=== PATIENT | female | born 1995 | race African-American/Black ===

== ENCOUNTER 2017-02-08 15:37 | Emergency (ER) | payer BC ==
[~2017-02-08] VITALS: Ht 166.4 cm; Wt 99.8 kg
[~2017-02-08 15:37] MED LIST: AMOX1TAB61 PO
[2017-02-08 15:47] VITALS: BP 124/72
--- NOTE | 2017-02-08 16:29 | PHYS DOC ---
Past Medical History Past Medical History: Asthma, Diabetes-Type II Additional Past Medical Histor: INSULIN RESISTANCE SYNDROME Past Surgical History: Cholecystectomy, Other Additional Past Surgical Histo: WISDOM TEETH EXTRACT Alcohol Use: None Drug Use: None Adult General Chief Complaint Chief Complaint: FACE PAIN [facility] HPI Patient is a 21 year old female presents emergency department stating that she' s had sinus congestion with nasal drainage and a cough that started about a month ago. She states that this time she just has a nasal pressure and congestion. She states she has sinus pressure over the frontal area. She states that she has been having chills but denies fevers that she has not taken her temperature. Patient states her last menstrual period was in December tenderness concern for . She does state she took a test 2 weeks ago at home and it was negative. Denies vaginal discharge. Denies any abdominal pain or discomfort. Review of Systems Review of Systems Constitutional: Denies fever. C/o chills Eyes: Denies change in visual acuity, redness, or eye pain [] HENT: nasal congestion, frontal sinus pressure denies sore throat [] Respiratory: Denies cough or shortness of breath [] Cardiovascular: No additional information not addressed in HPI [] GI: Denies abdominal pain, nausea, vomiting, bloody stools or diarrhea [] : Denies dysuria or hematuria [] Musculoskeletal: Denies back pain or joint pain [] Integument: Denies rash or skin lesions [] Neurologic: Denies headache, focal weakness or sensory changes [] Allergies Allergies Allergies Coded Allergies Type Severity Reaction Last Updated Verified No Known Drug Allergies 08/21/15 No Physical Exam Physical Exam Constitutional: Well developed, well nourished, no acute distress, non-toxic appearance. [] HENT: Normocephalic, atraumatic, bilateral external ears normal, oropharynx moist, no oral exudates, nose normal. Bilateral tympanic membranes appear to be normal. Patient with frontal sinus pressure. Patient with nasal congestion. Throat appears to have postnasal drip no erythematous no exudate noted. Eyes: PERRLA, EOMI, conjunctiva normal, no discharge. [] Neck: Normal range of motion, no tenderness, supple, no stridor. [] Cardiovascular:Heart rate regular rhythm, no murmur [] Lungs & Thorax: Bilateral breath sounds clear to auscultation [] Skin: Warm, dry, no erythema, no rash. [] Back: No tenderness Extremities: No tenderness, no cyanosis, no clubbing, ROM intact, no edema. [] Neurologic: Alert and oriented X 3, normal motor function, normal sensory function, no focal deficits noted. [] Psychologic: Affect normal, judgement normal, mood normal. [] Current Patient Data Vital Signs Vital Signs Date Time Temp Pulse Resp B/P Pulse Ox O2 Delivery O2 Flow Rate FiO2 02/08/17 15:47 97.4 86 16 100 Room Air 97.4 Lab Values Laboratory Tests Test 02/08/17 15:44 POC Urine HCG, Qualitative Hcg negative (Negative) EKG EKG [] Radiology/Procedures Radiology/Procedures [] Course & Med Decision Making Course & Med Decision Making Pertinent Labs and Imaging studies reviewed. (See chart for details) test is negative. Patient will be placed on Augmentin with recommendations for Sudafed and Mucinex as instructed by mix technician. Recommended plenty of fluids. Signs symptoms to return back to emergency department as been provided. Patient agrees with discharge instructions treatment regimens and follow-up recommendations. [] Dragon Disclaimer Dragon Disclaimer This electronic medical record was generated, in whole or in part, using a voice recognition dictation system. Departure Departure Impression: Primary Impression: Sinusitis Disposition: 01 HOME, SELF-CARE Condition: STABLE Referrals: NO PCP (PCP) Patient Instructions: Sinusitis, [id number] Additional Instructions: test was negative Activity as tolerated Sudafed as directed by manufacture Mucinex as directed by manufacture Medication as prescribed Drink plenty of fluids Followup with primary care provider in 3-5 days Return to emergency department as needed for signs and symptoms that become worse. Scripts Amoxicillin/Potassium Clav (Augmentin 875-125 Tablet)1 Each Tablet1 Tab PO BID # 20 TAB Prov:SJ SOLOMON APRN 02/08/17 SJ SOLOMON APRN Feb 08, 2017 16:29
[2017-02-08] MEDS ORDERED: AMOX1TAB61 PO (16:48)
== END 2017-02-08 18:52 | disposition home or self-care (01) ==
LOC: ER 15:37
DX: J32.9 Chronic sinusitis, unspecified (principal); J45.909 Unspecified asthma, uncomplicated; E11.9 Type 2 diabetes mellitus without complications
CPT/HCPCS: 81025; 99283

== ENCOUNTER 2017-04-09 11:17 | Emergency (ER) | payer BC ==
[~2017-04-09] VITALS: Ht 165.1 cm; Wt 117.9 kg
[2017-04-09 11:37] VITALS: BP 127/69
--- NOTE | 2017-04-09 11:56 | PHYS DOC ---
Past Medical History Past Medical History: Asthma, Diabetes-Type II Additional Past Medical Histor: INSULIN RESISTANCE SYNDROME Past Surgical History: Cholecystectomy, Other Additional Past Surgical Histo: WISDOM TEETH EXTRACT Alcohol Use: None Drug Use: None Adult General Chief Complaint Chief Complaint: EARACHE/EAR PAIN [facility] HPI Patient is a 21 year old female presents emergency department stating that she went out with her friends for the weekend and has been drinking. She states she came back, and went to bed. She states when she got up this morning she had muffled hearing out of the left ear. She states she did take a be penetrated clean her ear out. She denies obtaining any type of object. She denies any drainage or discharge coming from the site. She denies any fever, chills or any nausea vomiting. Review of Systems Review of Systems Constitutional: Denies fever or chills [] Eyes: Denies change in visual acuity, redness, or eye pain [] HENT: Denies nasal congestion or sore throat. C/o left ear discomfort Respiratory: Denies cough or shortness of breath [] Cardiovascular: No additional information not addressed in HPI [] GI: Denies abdominal pain, nausea, vomiting, bloody stools or diarrhea [] : Denies dysuria or hematuria [] Musculoskeletal: Denies back pain or joint pain [] Integument: Denies rash or skin lesions [] Neurologic: Denies headache, focal weakness or sensory changes [] Endocrine: Denies polyuria or polydipsia [] Allergies Allergies Allergies Coded Allergies Type Severity Reaction Last Updated Verified No Known Drug Allergies 08/21/15 No Physical Exam Physical Exam Constitutional: Well developed, well nourished, no acute distress, non-toxic appearance. [] HENT: Normocephalic, atraumatic, bilateral external ears normal, oropharynx moist, no oral exudates, nose normal. Right tympanic membranes appear to be normal. Left tympanic membrane appears to have an effusion although the area is not red. It does appear that she has a ruptured tympanic membrane as there is dark colored secretions noted at the lower part of the tympanic membrane. However this may also be a cerumen impaction. Eyes: PERRLA, EOMI, conjunctiva normal, no discharge. [] Neck: Normal range of motion, no tenderness, supple, no stridor. [] Cardiovascular:Heart rate regular rhythm, no murmur [] Lungs & Thorax: Bilateral breath sounds clear to auscultation [] Skin: Warm, dry, no erythema, no rash. [] Back: No tenderness, Extremities: No tenderness, no cyanosis, no clubbing, ROM intact, no edema. [] Neurologic: Alert and oriented X 3, normal motor function, normal sensory function, no focal deficits noted. [] Psychologic: Affect normal, judgement normal, mood normal. [] Current Patient Data Vital Signs Vital Signs Date Time Temp Pulse Resp B/P (MAP) Pulse Ox O2 Delivery O2 Flow Rate FiO2 04/09/17 11:37 98.2 91 18 98 Room Air 98.2 EKG EKG [] Radiology/Procedures Radiology/Procedures [] Course & Med Decision Making Course & Med Decision Making Pertinent Labs and Imaging studies reviewed. (See chart for details) She'll be discharged home in stable condition with recommendations for Tylenol or ibuprofen for pain and discomfort. She'll be discharged with signs and symptoms to return back to emergency department. Patient agrees with discharge instructions treatment regimens and follow-up recommendations. [] Dragon Disclaimer Dragon Disclaimer This electronic medical record was generated, in whole or in part, using a voice recognition dictation system. Departure Departure Impression: Primary Impression: Otalgia of left ear Disposition: 01 HOME, SELF-CARE Condition: STABLE Referrals: NO PCP (PCP) Patient Instructions: Otalgia-Brief, Tympanic Membrane Perforation-SportsMed Additional Instructions: Activity as tolerated. Medications as prescribed. Warm moist packs to the ear area. Keep the area clean and dry. Whenever you're taking a shower make sure you place a cotton ball in the ear to prevent water from going into the ear. Follow-up through primary care physician in next 3-5 days. Return back to emergency prior signs symptoms of become worse. SJ SOLOMON OPERATOR HELPER April 09, 2017 11:56
== END 2017-04-09 12:10 | disposition home or self-care (01) ==
LOC: ER 12:07
DX: H92.02 Otalgia, left ear (principal); J45.909 Unspecified asthma, uncomplicated; E11.9 Type 2 diabetes mellitus without complications
CPT/HCPCS: 99281

== ENCOUNTER 2017-07-30 17:18 | Emergency (ER) | payer BC ==
[~2017-07-30] VITALS: Ht 165.1 cm; Wt 117.9 kg
[2017-07-30 17:20] VITALS: BP 143/63
--- NOTE | 2017-07-30 17:34 | PHYS DOC ---
Past Medical History Past Medical History: Asthma, Diabetes-Type II Additional Past Medical Histor: INSULIN RESISTANCE SYNDROME Past Surgical History: Cholecystectomy, Other Additional Past Surgical Histo: WISDOM TEETH EXTRACT Alcohol Use: None Drug Use: None Adult General Chief Complaint Chief Complaint: VAGINAL PROBLEM HPI HPI Patient is a 21 year old female presents to the emergency department with a one -week history of vaginal bleeding. Patient states her last normal menstrual period was July 09, normal cycle normal timing. Patient states that one week ago she developed vaginal bleeding. She states she has no abdominal pain, no cramping. No vaginal discharge prior to the bleeding. She states she is not sexually active and has not been for 6 months. She has no complaints of headache , lightheadedness, chest pain, abdominal pain, nausea, vomiting. Patient reports that she saturates 3 pads in a 24-hour window. Review of Systems Review of Systems Constitutional: Denies fever or chills [] Eyes: Denies change in visual acuity, redness, or eye pain [] HENT: Denies nasal congestion or sore throat [] Respiratory: Denies cough or shortness of breath [] Cardiovascular: No additional information not addressed in HPI [] GI: Denies abdominal pain, nausea, vomiting, bloody stools or diarrhea [] : Denies dysuria or hematuria, vaginal bleeding[] Musculoskeletal: Denies back pain or joint pain [] Integument: Denies rash or skin lesions [] Neurologic: Denies headache, focal weakness or sensory changes [] Endocrine: Denies polyuria or polydipsia [] Allergies Allergies Allergies Coded Allergies Type Severity Reaction Last Updated Verified No Known Drug Allergies 08/21/15 No Physical Exam Physical Exam Constitutional: Well developed, well nourished, no acute distress, non-toxic appearance. [] HENT: Normocephalic, atraumatic, bilateral external ears normal, oropharynx moist, no oral exudates, nose normal. [] Eyes: PERRLA, EOMI, conjunctiva normal, no discharge. [] Neck: Normal range of motion, no tenderness, supple, no stridor. [] Cardiovascular:Heart rate regular rhythm, no murmur [] Lungs & Thorax: Bilateral breath sounds clear to auscultation [] Abdomen: Bowel sounds normal, soft, no tenderness, no masses, no pulsatile masses. : pt refused Skin: Warm, dry, no erythema, no rash. [] Back: No tenderness, no CVA tenderness. [] EKG EKG [] Radiology/Procedures Radiology/Procedures [] Course & Med Decision Making Course & Med Decision Making Pertinent Labs and Imaging studies reviewed. (See chart for details) Differential diagnosis: Dysfunctional uterine bleeding, spontaneous , bleeding in , menses Patient is now , her vital signs are stable without tachycardia or hypotension, she has no abdominal pain, she has no vaginal discharge. Patient states she is not at risk for an STD. At this time, patient we discharged home with plan to follow-up as scheduled at [facility]. Dragon Disclaimer Dragon Disclaimer This electronic medical record was generated, in whole or in part, using a voice recognition dictation system. Departure Departure Impression: Primary Impression: DUB (dysfunctional uterine bleeding) Disposition: 01 HOME, SELF-CARE Condition: STABLE Referrals: NO PCP (PCP) [facility] Patient Instructions: Uterine Bleeding, Dysfunctional Additional Instructions: Continue present care. Follow up with [facility] [place] [place] as scheduled. Please call them on Tuesday to see if they may see you sooner. Return to the emergency department for new symptoms or concerns or worsening of current condition. SUZANNE WRIGHT APRN Jul 30, 2017 17:34
== END 2017-07-30 17:50 | disposition home or self-care (01) ==
LOC: ER 17:18
DX: N93.8 Other specified abnormal uterine and vaginal bleeding (principal); J45.909 Unspecified asthma, uncomplicated; E11.9 Type 2 diabetes mellitus without complications; E88.81 Metabolic syndrome and other insulin resistance; Z90.49 Acquired absence of other specified parts of digestive tract
CPT/HCPCS: 81025; 99282

== ENCOUNTER 2018-06-17 11:22 | Emergency (ER) | payer BC ==
[2018-06-17 12:37] LABS: FECAL OB PT POSITIVE (NEG); NEG OBC FOB NEG; POS OBC FOB POS
[2018-06-17 13:05] LABS: ADD MAN DIFF? NO
[2018-06-17 13:07] LABS: BASO % 1 % (0-3); EOS % 0 % (0-3); HEMATOCRIT 36.1 % (36.0-47.0); LYMPH # 1.1 x10^3/uL (1.0-4.8); LYMPH % 19 % (24-48); MEAN CORPUSCULAR HEMOGLOBIN 26 pg (25-35); MEAN CORPUSCULAR HGB CONC 33 g/dL (31-37); MEAN CORPUSCULAR VOLUME 77 fL (79-100); MONO # 0.5 x10^3/uL (0.0-1.1); MONO % 9 % (0-9); NEUT # 4.4 x10^3uL (1.8-7.7); NEUT % 72 % (31-73); PLATELET COUNT 429 x10^3/uL (140-400); RED BLOOD COUNT 4.68 x10^6/uL (3.50-5.40); WHITE BLOOD COUNT 6.2 x10^3/uL (4.0-11.0)
[2018-06-17] MEDS: IBUPROFEN 600 MG TABLET. PO (13:11)
== END 2018-06-17 13:46 | disposition home or self-care (01) ==
LOC: ER 11:22
DX: K64.4 Residual hemorrhoidal skin tags (principal); J45.909 Unspecified asthma, uncomplicated; E11.9 Type 2 diabetes mellitus without complications; Z90.49 Acquired absence of other specified parts of digestive tract
CPT/HCPCS: 36415; 74018; 82274; 85025; 99285

== ENCOUNTER 2018-07-03 15:52 | Emergency (ER) | payer BC ==
[2018-07-03 16:35] LABS: URINE HCG POC HCG NEGATIVE (Negative)
== END 2018-07-03 17:21 | disposition home or self-care (01) ==
LOC: ER 17:21
DX: K64.9 Unspecified hemorrhoids (principal); J45.909 Unspecified asthma, uncomplicated; Z90.49 Acquired absence of other specified parts of digestive tract
CPT/HCPCS: 81025; 99282

== ENCOUNTER 2018-09-12 16:15 | Emergency (ER) | payer BC ==
[~2018-09-12] VITALS: Ht 165.1 cm; Wt 108.9 kg
[~2018-09-12 16:15] MED LIST changes: +HYDR30CR61 TP
[2018-09-12] MEDS ORDERED: LIDO:MAALOX 1:1 20 ML SINGLE DOSE. SWSW ONE (16:45)
[2018-09-12 17:01] LABS: BASO # 0.1 x10^3/uL (0.0-0.2); BASO % 1 % (0-3); EOS % 1 % (0-3); HEMATOCRIT 32.7 % (36.0-47.0); HEMOGLOBIN 10.8 g/dL (12.0-15.5); LYMPH # 1.7 x10^3/uL (1.0-4.8); LYMPH % 22 % (24-48); MEAN CORPUSCULAR HEMOGLOBIN 26 pg (25-35); MEAN CORPUSCULAR HGB CONC 33 g/dL (31-37); MEAN CORPUSCULAR VOLUME 77 fL (79-100); MONO # 0.6 x10^3/uL (0.0-1.1); MONO % 7 % (0-9); NEUT # 5.5 x10^3uL (1.8-7.7); NEUT % 70 % (31-73); PLATELET COUNT 436 x10^3/uL (140-400); RED BLOOD COUNT 4.22 x10^6/uL (3.50-5.40); RED CELL DISTRIBUTION WIDTH 15.9 % (11.5-14.5); WHITE BLOOD COUNT 7.9 x10^3/uL (4.0-11.0)
--- NOTE | 2018-09-12 17:02 | PHYS DOC ---
Past Medical History Past Medical History: Anxiety, Asthma Additional Past Medical Histor: INSULIN RESISTANCE SYNDROME Past Surgical History: Cholecystectomy Additional Past Surgical Histo: WISDOM TEETH EXTRACT Smoking: Cigarettes (The patient is a nonsmoker.) Alcohol Use: None Drug Use: None Adult General Chief Complaint Chief Complaint: CHEST PAIN HPI HPI Patient is a 22-year-old female presents to the emergency department for evaluation. She states that this morning, she began experiencing some discomfort in her chest, described as a sharp retrosternal pain. She also had some burning sensation in the back of her throat at the same time. She states that belching seemed to take the pain improved somewhat. She has not had any pleuritic chest pain or shortness of breath, dizziness or lightheadedness. She has no personal history of cardiac disease, or family history of premature onset coronary disease. She denies any recent immobilization or surgeries, and does not use oral contraceptives. She has not had any abdominal pain, she did have some nausea briefly, but has not had any vomiting. She has not had any fevers or chills. There are no alleviating or exacerbating factors to the patient's symptoms except as noted above. Review of Systems Review of Systems Constitutional: Denies fever or chills [] Eyes: Denies change in visual acuity, redness, or eye pain [] HENT: Denies nasal congestion or sore throat [] Respiratory: Denies cough or shortness of breath [] Cardiovascular: No additional information not addressed in HPI [] GI: Denies abdominal pain, vomiting, bloody stools or diarrhea [] : Denies dysuria or hematuria [] Musculoskeletal: Denies back pain or joint pain [] Integument: Denies rash or skin lesions [] Neurologic: Denies headache, focal weakness or sensory changes [] Endocrine: Denies polyuria or polydipsia [] All other systems were reviewed and found to be within normal limits, except as documented in this note. Current Medications Current Medications Current Medications Medications (Trade) Dose Ordered Sig/Ryan Start Time Stop Time Status Last Admin Dose Admin Multi-Ingredient Mouthwash/Gargle (Gi Cocktail) 20 ml 1X ONCE 09/12/18 16:45 09/12/18 16:48 DC 09/12/18 17:03 20 ML Allergies Allergies Allergies Coded Allergies Type Severity Reaction Last Updated Verified No Known Drug Allergies 08/21/15 No Physical Exam Physical Exam PHYSICAL EXAM: CONSTITUTIONAL: Well developed, well nourished HEAD: normocephalic, atraumatic EENT: PERRL, EOMI. Conjunctivae normal color, sclerae non-icteric; moist mucous membranes. NECK: Supple, non-tender; no meningismus. LUNGS: Lungs CTA, breathing even and unlabored. Normal air movement. HEART: Regular rate and rhythm, no murmur CHEST: No deformity; there is mild diffuse tenderness to palpation of the anterior chest with, but the patient states that this is not exactly reproduce her pain. ABDOMEN: The abdomen is soft, and non-tender, no masses or bruits. EXTREM: Normal ROM; no deformity, no calf tenderness. Normal pulses palpable in all extremities. There is no pedal edema. SKIN: No rash; no diaphoresis NEURO: Alert; normal speech and cognition; CN's grossly intact; strength grossly intact without focal deficit. BACK: No CVA TTP. Current Patient Data Vital Signs Vital Signs Date Time Temp Pulse Resp B/P (MAP) Pulse Ox O2 Delivery O2 Flow Rate FiO2 09/12/18 16:22 98.4 76 20 130/64 (86) 98 Room Air 98.4 Lab Values Laboratory Tests Test 09/12/18 16:52 09/12/18 16:57 09/12/18 18:00 White Blood Count 7.9 x10^3/uL (4.0-11.0) Red Blood Count 4.22 x10^6/uL (3.50-5.40) Hemoglobin 10.8 g/dL (12.0-15.5) L Hematocrit 32.7 % (36.0-47.0) L Mean Corpuscular Volume 77 fL (79-100) L Mean Corpuscular Hemoglobin 26 pg (25-35) Mean Corpuscular Hemoglobin Concent 33 g/dL (31-37) Red Cell Distribution Width 15.9 % (11.5-14.5) H Platelet Count 436 x10^3/uL (140-400) H Neutrophils (%) (Auto) 70 % (31-73) Lymphocytes (%) (Auto) 22 % (24-48) L Monocytes (%) (Auto) 7 % (0-9) Eosinophils (%) (Auto) 1 % (0-3) Basophils (%) (Auto) 1 % (0-3) Neutrophils # (Auto) 5.5 x10^3uL (1.8-7.7) Lymphocytes # (Auto) 1.7 x10^3/uL (1.0-4.8) Monocytes # (Auto) 0.6 x10^3/uL (0.0-1.1) Eosinophils # (Auto) 0.0 x10^3/uL (0.0-0.7) Basophils # (Auto) 0.1 x10^3/uL (0.0-0.2) D-Dimer (Lili) < 0.27 ug/mlFEU POC Urine HCG, Qualitative Hcg negative (Negative) Sodium Level 141 mmol/L (136-145) Potassium Level 4.2 mmol/L (3.5-5.1) Chloride Level 102 mmol/L (98-107) Carbon Dioxide Level 27 mmol/L (21-32) Anion Gap 12 (6-14) Blood Urea Nitrogen 8 mg/dL (7-20) Creatinine 0.6 mg/dL (0.6-1.0) Estimated GFR (Cockcroft-Gault) 151.3 BUN/Creatinine Ratio 13 (6-20) Glucose Level 102 mg/dL (70-99) H Calcium Level 9.8 mg/dL (8.5-10.1) Total Bilirubin 0.3 mg/dL (0.2-1.0) Aspartate Amino Transferase (AST) 20 U/L (15-37) Alanine Aminotransferase (ALT) 24 U/L (14-59) Alkaline Phosphatase 115 U/L (46-116) Creatine Kinase 455 U/L (26-192) H Creatine Kinase MB (Mass) 0.7 ng/mL (0.0-3.6) Creatine Kinase MB Relative Index 0.2 % (0-4) Troponin I Quantitative < 0.017 ng/mL (0.000-0.055) Total Protein 8.4 g/dL (6.4-8.2) H Albumin 4.2 g/dL (3.4-5.0) Albumin/Globulin Ratio 1.0 (1.0-1.7) Lipase 112 U/L (73-393) Laboratory Tests 09/12/18 16:52 Laboratory Tests 09/12/18 18:00 EKG EKG [Normal sinus rhythm with a normal rate, normal axis, normal intervals, there are no acute ischemic ST/T changes.] Radiology/Procedures Radiology/Procedures [PROCEDURE: CHEST PA & LATERAL PROCEDURE: CHEST PA LATERAL CLINICAL INDICATION: CHEST PAIN COMPARISON: None FINDINGS: No pneumothorax identified. Cardiac and mediastinal contours unremarkable. No pulmonary consolidation or acute airspace disease. No acute osseous abnormalities identified. IMPRESSION: No pulmonary consolidation or acute airspace disease. ] Course & Med Decision Making Course & Med Decision Making Pertinent Labs and Imaging studies reviewed. (See chart for details) [6:00 PM: The patient's condition remains stable. Her chemistry has hemolyzed and will be redrawn. Assuming the patient's laboratory tests are negative, the patient is stable to be discharged. I discussed test results with the patient, the need for home care plan return precautions. Her symptoms significantly improved after GI cocktail. We discussed using Pepcid AC twice daily, and liquid antacids for recurrent symptoms. 19:00: Labs reviewed. No acute findings on x-ray or lab panel. Patient is discharged home. She is advised to follow-up with her primary care doctor. Dragon Disclaimer Dragon Disclaimer This electronic medical record was generated, in whole or in part, using a voice recognition dictation system. Departure Departure Impression: Primary Impression: Atypical chest pain Additional Impression: GERD (gastroesophageal reflux disease) Disposition: 01 HOME, SELF-CARE Condition: STABLE Patient Instructions: Chest Pain (Nonspecific), Gastroesophageal Reflux Disease , Adult Additional Instructions: Take Pepcid AC 10 mg twice daily. Problem Qualifiers OUMOU BENNETT MD Sep 12, 2018 17:02 HORACE PERDOMO DO Sep 12, 2018 19:06
--- NOTE | 2018-09-12 17:35 | RAD ---
PROCEDURE: CHEST PA LATERAL CLINICAL INDICATION: CHEST PAIN COMPARISON: None FINDINGS: No pneumothorax identified. Cardiac and mediastinal contours unremarkable. No pulmonary consolidation or acute airspace disease. No acute osseous abnormalities identified. IMPRESSION: No pulmonary consolidation or acute airspace disease. Electronically signed by: Ander Ventura DO (09/12/2018 5:32 PM) [facility]
[2018-09-12 18:20] LABS: CALCIUM 9.8 mg/dL (8.5-10.1); CREATININE 0.6 mg/dL (0.6-1.0); GFR 151.3; POTASSIUM 4.2 mmol/L (3.5-5.1)
[2018-09-12 18:31] LABS: ALBUMIN 4.2 g/dL (3.4-5.0); TOTAL BILIRUBIN 0.3 mg/dL (0.2-1.0); TOTAL PROTEIN 8.4 g/dL (6.4-8.2)
[2018-09-12 19:12] VITALS: BP 120/63
--- NOTE | 2018-09-13 06:20 | EKG ---
[facility] [address] [place] [address] Test Date: 2018-09-12 Test Time: 16:24:04 Pat Name: CHRISTOPHER LOWE Department: Room: Gender: F Track Helper: : 1995 Requested By: OUMOU BENNETT Order Number: [id number] Reading MD: Abad Kimball Measurements Intervals [place] Rate: 66 P: 46 VT: 126 QRS: 78 QRSD: 86 T: 36 QT: 362 QTc: 381 Interpretive Statements SINUS RHYTHM NORMAL ECG Electronically Signed On 09-14-2018 11:24:04 CDT by Abad Kimball
== END 2018-09-12 19:12 | disposition home or self-care (01) ==
LOC: ER 16:15
DX: R07.89 Other chest pain (principal); K21.9 Gastro-esophageal reflux disease without esophagitis; F41.9 Anxiety disorder, unspecified; J45.909 Unspecified asthma, uncomplicated; Z90.49 Acquired absence of other specified parts of digestive tract
CPT/HCPCS: 36415; 71046; 80053; 81025; 82553; 83690; 84484; 85025; 85379; 93005; 99285-25

== ENCOUNTER 2018-10-10 14:53 | Emergency (ER) | payer BC ==
[~2018-10-10] VITALS: Ht 165.1 cm; Wt 108.9 kg
[2018-10-10 15:11] VITALS: BP 146/64
[2018-10-10] MEDS ORDERED: DIPHTH,PERTUSS(ACELL),TET TOX 0.5 ML DISP.SYRIN. VAX IM ONE (15:30)
[2018-10-10] MEDS ORDERED: SULF1TAB24 PO (15:38)
--- NOTE | 2018-10-10 15:39 | PHYS DOC ---
Past Medical History Past Medical History: No Pertinent History, Anxiety, Asthma Additional Past Medical Histor: INSULIN RESISTANCE SYNDROME Past Surgical History: No Surgical History, Cholecystectomy Additional Past Surgical Histo: WISDOM TEETH EXTRACT Alcohol Use: None Drug Use: None Adult General Chief Complaint Chief Complaint: OTHER COMPLAINTS HPI HPI Patient is a 23 year old female who presents with bilateral nipple infection after removing piercing 1 month ago. Patient states she noted swelling to the left nipple yesterday, denies any drainage, denies any fever. Review of Systems Review of Systems Constitutional: Denies fever or chills [] Musculoskeletal: Denies back pain or joint pain [] Integument: bilateral nipple infection Neurologic: Denies headache, focal weakness or sensory changes [] All other systems were reviewed and found to be within normal limits, except as documented in this note. Current Medications Current Medications Current Medications Medications (Trade) Dose Ordered Sig/Ryan Start Time Stop Time Status Last Admin Dose Admin Diphtheria/ Tetanus/Acell Pertussis (Boostrix) 0.5 ml ONCE ONCE 10/10/18 15:30 10/10/18 15:31 DC Allergies Allergies Allergies Coded Allergies Type Severity Reaction Last Updated Verified No Known Drug Allergies 08/21/15 No Physical Exam Physical Exam Constitutional: Well developed, well nourished, no acute distress, non-toxic appearance. [] Skin: Warm, dry, right nipple with no signs of infection. Right breast appears normal, pendulous, no drainage. No masses. Left nipple with an abscess 1500 position. Abscess is approximately 1 x 0.3 cm. It's fluctuant with surrounding erythema. There is no drainage. Back: No tenderness, no CVA tenderness. [] Extremities: No tenderness, no cyanosis, no clubbing, ROM intact, no edema. [] Neurologic: Alert and oriented X 3, normal motor function, normal sensory function, no focal deficits noted. [] Psychologic: Affect normal, judgement normal, mood normal. [] Current Patient Data Vital Signs Vital Signs Date Time Temp Pulse Resp B/P (MAP) Pulse Ox O2 Delivery O2 Flow Rate FiO2 10/10/18 15:11 98.4 66 16 146/64 (91) 98 Room Air 98.4 EKG EKG [] Radiology/Procedures Radiology/Procedures Indication: abscess left nipple Procedure: The patient was positioned appropriately. Local anesthesia was not applicable. An incision was then made over the apex of the lesion with a 18 gauge needle and small amount of yellow bloody material was expressed. The drainage cavity was irrigated and covered with sterile gauze. The patients tetanus status updated as needed. The patient tolerated the procedure well. Complications: none.[] Course & Med Decision Making Course & Med Decision Making Pertinent Labs and Imaging studies reviewed. (See chart for details) This is a 23-year-old female patient presented to the ED today with bilateral nipple infection after removing piercing month ago. Right nipple appears normal. Left nipple had an abscess which was drained as noted in procedures. Tetanus was updated. Patient was discharged on Bactrim. Warm compresses recommended to bilateral breasts. Instructed not re-foley the breasts until the infection has completely cleared up. Follow-up with PCP as needed. Dragon Disclaimer Dragon Disclaimer This electronic medical record was generated, in whole or in part, using a voice recognition dictation system. Departure Departure Impression: Primary Impression: Left breast abscess Disposition: HOME, SELF-CARE Condition: STABLE Referrals: NO PCP (PCP) follow up with your doctor next week. Patient Instructions: Abscess, Care After Additional Instructions: You were seen with breast infection. We put you on antibiotics, take them until completed. Apply warm compresses to bilateral breast twice a day. Follow-up with your own doctor in 1-2 weeks. Come back to the ED at any point symptoms worsen. Scripts Sulfamethoxazole/Trimethoprim (BACTRIM DS TABLET) 1 Each Tablet 1 TAB PO BID, #20 TAB Prov: ANISA MAHONEY APRN 10/10/18 ANISA MAHONEY APRN Oct 10, 2018 15:39
== END 2018-10-10 15:47 | disposition home or self-care (01) ==
LOC: ER 14:53
DX: N61.1 Abscess of the breast and nipple (principal); F41.9 Anxiety disorder, unspecified; J45.909 Unspecified asthma, uncomplicated; Z90.49 Acquired absence of other specified parts of digestive tract
CPT/HCPCS: 10060; 90471; 90715; 99283

== ENCOUNTER 2018-12-04 12:13 | Emergency (ER) | payer BC ==
[~2018-12-04] VITALS: Ht 165.1 cm; Wt 108.9 kg
[~2018-12-04 12:13] MED LIST changes: +SULF1TAB24 PO
[2018-12-04 12:15] VITALS: BP 128/68
[2018-12-04] MEDS ORDERED: AMOX500T PO (12:46)
--- NOTE | 2018-12-04 12:48 | PHYS DOC ---
Past Medical History Past Medical History: Anxiety, Asthma Additional Past Medical Histor: INSULIN RESISTANCE SYNDROME Past Surgical History: Cholecystectomy Additional Past Surgical Histo: WISDOM TEETH EXTRACT Alcohol Use: None Drug Use: None Adult General Chief Complaint Chief Complaint: EARACHE/EAR PAIN [facility] Patient is a 23 year old female who presents with ear pain. Patient complains of persistent popping and pain in the bilateral ears with the right being worse than the left. She has had symptoms over the last 2-3 days. Prior to that, she did have some viral upper respiratory symptoms including congestion and runny nose but the symptoms have improved. No fever or chills. She does endorse one prior history of urine infections in the past. She has no additional complaints today. Review of Systems Review of Systems Constitutional: Denies fever or chills Eyes: Denies change in visual acuity HENT: Denies nasal congestion Respiratory: Denies cough or shortness of breath Cardiovascular: No additional information not addressed in HPI GI: Denies abdominal pain Integument: Denies rash Neurologic: Denies headache All other systems were reviewed and found to be within normal limits, except as documented in this note. Allergies Allergies Allergies Coded Allergies Type Severity Reaction Last Updated Verified No Known Drug Allergies 08/21/15 No Physical Exam Physical Exam Constitutional: Well developed, well nourished, no acute distress, non-toxic appearance HENT: Normocephalic, atraumatic, bilateral external ears normal, oropharynx moist, no oral exudates, nose normal, bilateral TMs are clear but with effusions bilaterally Eyes: PERRLA, EOMI, conjunctiva normal Neck: Normal range of motion Cardiovascular:Heart rate regular rhythm, no murmur Lungs & Thorax: Bilateral breath sounds clear to auscultation Extremities: Normal ROM Neurologic: Alert and oriented X 3 Psychologic: Affect normal Current Patient Data Vital Signs Vital Signs Date Time Temp Pulse Resp B/P (MAP) Pulse Ox O2 Delivery O2 Flow Rate FiO2 12/04/18 12:15 98.6 75 16 128/68 (88) 100 Room Air 98.6 EKG EKG [] Radiology/Procedures Radiology/Procedures [] Course & Med Decision Making Course & Med Decision Making Pertinent Labs and Imaging studies reviewed. (See chart for details) Patient is evaluated in the fast track area of the ER for ear pain. On physical exam, she is found to have bilateral effusions and the TMs are dull. Patient does have Nasonex at home but states she had not been using it. Plan is for discharge home. She was encouraged to start using her Nasonex and also to use Benadryl and Sudafed as needed to help dry the secretions. She was given a prescription for amoxicillin and advised only to fill it and take it if her symptoms were not better after trying these other measures previously. Patient was agreeable to the plan of care. She was discharged to home. Dragon Disclaimer Dragon Disclaimer This electronic medical record was generated, in whole or in part, using a voice recognition dictation system. Departure Departure Impression: Primary Impression: Acute effusion of both middle ears Additional Impression: Otitis media of both ears Disposition: HOME, SELF-CARE Condition: GOOD Patient Instructions: Otitis Media with Effusion Scripts Amoxicillin (AMOXICILLIN) 500 Mg Tablet 500 MG PO TID, #21 TAB 0 Refills Prov: HORACE PERDMOO DO 12/04/18 Problem Qualifiers HORACE PERDOMO DO Dec 04, 2018 12:48
== END 2018-12-04 12:52 | disposition home or self-care (01) ==
LOC: ER 12:13
DX: H65.193 Other acute nonsuppurative otitis media, bilateral (principal); F41.9 Anxiety disorder, unspecified; J45.909 Unspecified asthma, uncomplicated; Z90.49 Acquired absence of other specified parts of digestive tract
CPT/HCPCS: 99283

== ENCOUNTER 2019-02-08 12:08 | Emergency (ER) | payer BC ==
[~2019-02-08] VITALS: Ht 167.6 cm; Wt 108.9 kg
[~2019-02-08 12:08] MED LIST changes: +AMOX500T PO
[2019-02-08 12:38] VITALS: BP 112/54
[2019-02-08] MEDS ORDERED: AMOX875T PO (12:50)
--- NOTE | 2019-02-08 12:50 | PHYS DOC ---
Past Medical History Past Medical History: Anxiety, Asthma Additional Past Medical Histor: INSULIN RESISTANCE SYNDROME Past Surgical History: Cholecystectomy Additional Past Surgical Histo: WISDOM TEETH EXTRACT Alcohol Use: None Drug Use: None Adult General Chief Complaint Chief Complaint: EARACHE/EAR PAIN [facility] HPI Patient is a 23 year old female who presents with an earache to the right ear. The patient states that she feels like she cannot hear. She has had congestion for approximately one week. She has tried taking [id number] cold medications with moderate relief. Review of Systems Review of Systems Constitutional: Denies fever or chills [] Eyes: Denies change in visual acuity, redness, or eye pain [] HENT: See history of present illness Respiratory: Denies cough or shortness of breath [] Cardiovascular: No additional information not addressed in HPI [] GI: Denies abdominal pain, nausea, vomiting, bloody stools or diarrhea [] : Denies dysuria or hematuria [] Musculoskeletal: Denies back pain or joint pain [] Integument: Denies rash or skin lesions [] Neurologic: Denies headache, focal weakness or sensory changes [] Endocrine: Denies polyuria or polydipsia [] All other systems were reviewed and found to be within normal limits, except as documented in this note. Allergies Allergies Allergies Coded Allergies Type Severity Reaction Last Updated Verified No Known Drug Allergies 08/21/15 No Physical Exam Physical Exam Constitutional: Well developed, well nourished, no acute distress, non-toxic appearance. [] HENT: Normocephalic, atraumatic, bilateral tympanic membranes are erythematous, oropharynx moist, no oral exudates, nose normal. [] Eyes: PERRLA, EOMI, conjunctiva normal, no discharge. [] Neck: Normal range of motion, no tenderness, supple, no stridor. [] Cardiovascular:Heart rate regular rhythm, no murmur [] Lungs & Thorax: Bilateral breath sounds clear to auscultation [] Neurologic: Alert and oriented X 3, normal motor function, normal sensory function, no focal deficits noted. [] Psychologic: Affect normal, judgement normal, mood normal. [] Current Patient Data Vital Signs Vital Signs Date Time Temp Pulse Resp B/P (MAP) Pulse Ox O2 Delivery O2 Flow Rate FiO2 02/08/19 12:38 98.3 73 16 112/54 (73) 100 Room Air 98.3 EKG EKG [] Radiology/Procedures Radiology/Procedures [] Course & Med Decision Making Course & Med Decision Making Pertinent Labs and Imaging studies reviewed. (See chart for details) [] Dragon Disclaimer Dragon Disclaimer This electronic medical record was generated, in whole or in part, using a voice recognition dictation system. Departure Departure Impression: Primary Impression: Otitis media of both ears Disposition: HOME, SELF-CARE Condition: STABLE Referrals: NO PCP (PCP) Patient Instructions: Otitis Media, Adult Additional Instructions: Take the antibiotic as directed. You may use ibuprofen or Tylenol for pain or fever. Follow-up with your primary care provider in 4 days if not improving or return to the emergency department if worsening. Scripts Amoxicillin (AMOXICILLIN) 875 Mg Tablet 1 TAB PO BID for otitis media, #20 TAB Prov: SHARON LEON APRN 02/08/19 SHARON LEON APRN Feb 08, 2019 12:50
== END 2019-02-08 13:15 | disposition home or self-care (01) ==
LOC: ER 12:08
DX: H66.93 Otitis media, unspecified, bilateral (principal); F41.9 Anxiety disorder, unspecified; J45.909 Unspecified asthma, uncomplicated; Z90.49 Acquired absence of other specified parts of digestive tract
CPT/HCPCS: 99283

== ENCOUNTER 2019-05-07 12:51 | Emergency (ER) | payer BC ==
[~2019-05-07] VITALS: Ht 167.6 cm; Wt 108.9 kg
[~2019-05-07 12:51] MED LIST changes: +AMOX875T PO
[2019-05-07 13:56] LABS: BILIRUBIN,URINE NEGATIVE (NEG); CLARITY,URINE CLEAR; COLOR,URINE YELLOW; NITRITE,URINE NEGATIVE (NEG); PH,URINE 5.5; PROTEIN,URINE NEGATIVE (NEG-TRACE); UROBILINOGEN,URINE 0.2 mg/dL (0.2 mg/dL)
[2019-05-07 14:07] LABS: RBC,URINE 0 /HPF (0-2); WBC,URINE RARE /HPF (0-4)
[2019-05-07 14:08] LABS: BACTERIA,URINE FEW /HPF (0-FEW); SQUAMOUS EPITHELIAL CELL,UR MOD /LPF
[2019-05-07] MEDS ORDERED: cefTRIAXone IM 250 MG VIAL IM ONE (14:15)
[2019-05-07] MEDS ORDERED: AZITHROMYCIN 250 MG TABLET. PO ONE (14:15)
--- NOTE | 2019-05-07 14:16 | PHYS DOC ---
Past Medical History Past Medical History: Anxiety, Asthma Additional Past Medical Histor: INSULIN RESISTANCE SYNDROME Past Surgical History: Cholecystectomy Additional Past Surgical Histo: WISDOM TEETH EXTRACT Alcohol Use: None Drug Use: None Adult General Chief Complaint Chief Complaint: PAIN ON URINATION [facility] HPI Patient is a 23 year old female who presents with was sexually active 2 weeks ago with a ex-boyfriend. Patient states last week she began having burning with urination and cloudy urine. Patient states she started taking cranberry pills and that seemed to help but she still having some burning with urination. Patient denies blood in her urine, back pain, abdominal pain, vaginal bleeding, vaginal discharge, foul odor and vaginal area or of her urine. Patient denies any fever. Review of Systems Review of Systems Constitutional: Denies fever or chills [] Eyes: Denies change in visual acuity, redness, or eye pain [] HENT: Denies nasal congestion or sore throat [] Respiratory: Denies cough or shortness of breath [] Cardiovascular: No additional information not addressed in HPI [] GI: Denies abdominal pain, nausea, vomiting, bloody stools or diarrhea [] : dysuria. Denies hematuria [] Musculoskeletal: Denies back pain or joint pain [] Integument: Denies rash or skin lesions [] Neurologic: Denies headache, focal weakness or sensory changes [] All other systems were reviewed and found to be within normal limits, except as documented in this note. Current Medications Current Medications Current Medications Medications (Trade) Dose Ordered Sig/Ryan Start Time Stop Time Status Last Admin Dose Admin Azithromycin (Zithromax) 1,000 mg 1X ONCE 05/07/19 14:15 05/07/19 14:17 DC 05/07/19 14:15 1,000 MG Ceftriaxone Sodium (Rocephin Im) 250 mg 1X ONCE 05/07/19 14:15 05/07/19 14:17 DC 05/07/19 14:15 250 MG Allergies Allergies Allergies Coded Allergies Type Severity Reaction Last Updated Verified No Known Drug Allergies 08/21/15 No Physical Exam Physical Exam Constitutional: Well developed, well nourished, no acute distress, non-toxic appearance. [] HENT: Normocephalic, atraumatic, bilateral external ears normal, oropharynx moist, no oral exudates, nose normal. [] Eyes: PERRLA, EOMI, conjunctiva normal, no discharge. [] Neck: Normal range of motion, no tenderness, supple, no stridor. [] Cardiovascular:Heart rate regular rhythm, no murmur [] Lungs & Thorax: Bilateral breath sounds clear to auscultation [] Abdomen: Bowel sounds normal, soft, no tenderness, no masses, no pulsatile masses. [] Skin: Warm, dry, no erythema, no rash. [] Back: No tenderness, no CVA tenderness. [] Extremities: No tenderness, no cyanosis, no clubbing, ROM intact, no edema. [] Neurologic: Alert and oriented X 3, normal motor function, normal sensory function, no focal deficits noted. [] Psychologic: Affect normal, judgement normal, mood normal. Normal Physical exam. See Documentation for Pelvic exam. [] Current Patient Data Vital Signs Vital Signs Date Time Temp Pulse Resp B/P (MAP) Pulse Ox O2 Delivery O2 Flow Rate FiO2 05/07/19 13:10 98.5 85 18 112/72 (85) 99 Room Air 98.5 Lab Values Laboratory Tests Test 05/07/19 13:15 05/07/19 13:17 Urine Collection Type Unknown Urine Color Yellow Urine Clarity Clear Urine pH 5.5 Urine Specific [place] 1.025 Urine Protein Negative mg/dL (NEG-TRACE) Urine Glucose (UA) Negative mg/dL (NEG) Urine Ketones (Stick) Negative mg/dL (NEG) Urine Blood Trace (NEG) Urine Nitrite Negative (NEG) Urine Bilirubin Negative (NEG) Urine Urobilinogen Dipstick 0.2 mg/dL (0.2 mg/dL) Urine Leukocyte Esterase Negative (NEG) Urine RBC 0 /HPF (0-2) Urine WBC Rare /HPF (0-4) Urine Squamous Epithelial Cells Mod /LPF Urine Bacteria Few /HPF (0-FEW) Urine Mucus Mod /LPF POC Urine HCG, Qualitative Hcg negative (Negative) Microbiology 05/07/19 Wet Prep - Final, Complete EKG EKG [] Radiology/Procedures Radiology/Procedures [] Course & Med Decision Making Course & Med Decision Making Patient is a 23 year old female who presents with was sexually active 2 weeks ago with a ex-boyfriend. Patient states last week she began having burning with urination and cloudy urine. Patient states she started taking cranberry pills and that seemed to help but she still having some burning with urination. Patient denies blood in her urine, back pain, abdominal pain, vaginal bleeding, vaginal discharge, foul odor and vaginal area or of her urine. Patient denies any fever. Patient is afebrile. Urine does not show infection and a pelvic exam will be done and patient will be treated for that she transmitted diseases. Patient will be given Rocephin and azithromycin. Patient currently has no pain. Patient has no CVA tenderness, no vaginal discharge, no fever. Abdomen Soft and non-tender and there are no masses felt. She is told she will be called if her chlamydia and gonorrhea cultures come back positive only. Patient treated today for sexually transmitted diseases. Pelvic Exam: Charge Entry Specialist present Abdomen: Nontender External Genitalia: Normal Skin Speculum: Normal vaginal mucosa, white cervical discharge Bimanual: No adnexal masses or tenderness, No CMT Dragon Disclaimer Dragon Disclaimer This electronic medical record was generated, in whole or in part, using a voice recognition dictation system. Departure Departure Impression: Primary Impression: Dysuria Additional Impression: Sexually transmissible disease Disposition: HOME, SELF-CARE Condition: STABLE Referrals: NO PCP (PCP) Patient Instructions: Sexually Transmitted Disease Additional Instructions: You will be called in 48 hours if you're cultures come back positive. You been treated today for sexually transmitted diseases. Follow-up with her primary care doctor if symptoms continue. Drink plenty of fluids. Problem Qualifiers [employer] May 07, 2019 14:16
[2019-05-07 15:40] VITALS: BP 126/77
[2019-05-08 15:17] LABS: GC PROBE Negative (Negative)
== END 2019-05-07 15:40 | disposition home or self-care (01) ==
LOC: ER 12:51
DX: A64 Unspecified sexually transmitted disease (principal); R30.0 Dysuria; F41.9 Anxiety disorder, unspecified; J45.909 Unspecified asthma, uncomplicated; Z90.49 Acquired absence of other specified parts of digestive tract
CPT/HCPCS: 81001; 81025; 87491; 87591; 96372; 99284; J0696; Q0111; Q0144

== ENCOUNTER 2019-05-13 19:18 | Emergency (ER) | payer BC ==
[~2019-05-13] VITALS: Ht 167.6 cm; Wt 108.9 kg
[2019-05-13 19:37] VITALS: BP 153/65
[2019-05-13 20:00] LABS: BILIRUBIN,URINE NEGATIVE (NEG); CLARITY,URINE CLEAR; COLOR,URINE YELLOW; NITRITE,URINE NEGATIVE (NEG); PROTEIN,URINE NEGATIVE (NEG-TRACE); UROBILINOGEN,URINE 0.2 mg/dL (0.2 mg/dL)
[2019-05-13 20:07] LABS: SQUAMOUS EPITHELIAL CELL,UR MOD /LPF
[2019-05-13 20:09] LABS: BACTERIA,URINE 0 /HPF (0-FEW); TRICHOMONAS,URINE PRESENT
[2019-05-13] MEDS ORDERED: FLUC150T PO (20:13)
[2019-05-13] MEDS ORDERED: METR500T PO (20:13)
--- NOTE | 2019-05-13 22:57 | PHYS DOC ---
Past Medical History Past Medical History: Anxiety, Asthma Additional Past Medical Histor: INSULIN RESISTANCE SYNDROME Past Surgical History: Cholecystectomy Additional Past Surgical Histo: WISDOM TEETH EXTRACT Alcohol Use: None Drug Use: None Adult General Chief Complaint Chief Complaint: PAIN ON URINATION HPI HPI Patient is a 23 year old female presenting with dysuria as well as vaginal itching and burning came here the other day had negative gonorrhea negative Chlamydia negative wet mount negative urinalysis however symptoms are persi sting. Allergies Allergies Allergies Coded Allergies Type Severity Reaction Last Updated Verified No Known Drug Allergies 08/21/15 No Physical Exam Physical Exam Constitutional: Well developed, well nourished, no acute distress, non-toxic appearance. [] HENT: Normocephalic, atraumatic, bilateral external ears normal, oropharynx moist, no oral exudates, nose normal. [] Eyes: PERRLA, EOMI, conjunctiva normal, no discharge. [] Abdomen: Bowel sounds normal, soft, no tenderness, no masses, no pulsatile masses. [] Skin: Warm, dry, no erythema, no rash. [] Extremities: No tenderness, no cyanosis, no clubbing, ROM intact, no edema. [] Neurologic: Alert and oriented X 3, normal motor function, normal sensory function, no focal deficits noted. [] Psychologic: Affect normal, judgement normal, mood normal. [] Current Patient Data Vital Signs Vital Signs Date Time Temp Pulse Resp B/P (MAP) Pulse Ox O2 Delivery O2 Flow Rate FiO2 05/13/19 19:37 97.9 73 16 153/65 (94) 100 Room Air 97.9 Lab Values Laboratory Tests Test 05/13/19 19:34 05/13/19 19:48 Urine Collection Type Unknown Urine Color Yellow Urine Clarity Clear Urine pH 6.0 Urine Specific [place] 1.020 Urine Protein Negative mg/dL (NEG-TRACE) Urine Glucose (UA) Negative mg/dL (NEG) Urine Ketones (Stick) Negative mg/dL (NEG) Urine Blood Trace (NEG) Urine Nitrite Negative (NEG) Urine Bilirubin Negative (NEG) Urine Urobilinogen Dipstick 0.2 mg/dL (0.2 mg/dL) Urine Leukocyte Esterase Small (NEG) Urine RBC 11-20 /HPF (0-2) Urine WBC 5-10 /HPF (0-4) Urine Squamous Epithelial Cells Mod /LPF Urine Bacteria 0 /HPF (0-FEW) Urine Mucus Slight /LPF Urine Trichomonas Present POC Urine HCG, Qualitative Hcg negative (Negative) EKG EKG [] Radiology/Procedures Radiology/Procedures [] Course & Med Decision Making Course & Med Decision Making Pertinent Labs and Imaging studies reviewed. (See chart for details) []Urinalysis noted contaminated sample likely not a UTI however there is Trichomonas patient was treated for that Flagyl twice a day for a week as well as a prescription for Diflucan Pelvic exam not repeated it was just done a few days ago. Counseled on safe sex and protection Dragon Disclaimer Dragon Disclaimer This electronic medical record was generated, in whole or in part, using a voice recognition dictation system. Departure Departure Impression: Primary Impression: Vaginitis Disposition: HOME, SELF-CARE Condition: STABLE Scripts Fluconazole (DIFLUCAN) 150 Mg Tablet 1 TAB PO ONCE, #1 TAB 1 Refill Prov: ANA ARRIAGA MD 05/13/19 Metronidazole (FLAGYL) 500 Mg Tablet 1 TAB PO BID, #14 TAB Prov: ANA ARRIAGA MD 05/13/19 ANA ARRIAGA MD May 13, 2019 22:57
== END 2019-05-13 20:15 | disposition home or self-care (01) ==
LOC: ER 19:18
DX: N76.0 Acute vaginitis (principal); R30.0 Dysuria; F41.9 Anxiety disorder, unspecified; J45.909 Unspecified asthma, uncomplicated; Z90.49 Acquired absence of other specified parts of digestive tract
CPT/HCPCS: 81001; 81025; 87086; 99284

== ENCOUNTER 2019-05-31 21:03 | Emergency (ER) | payer BC ==
[~2019-05-31] VITALS: Ht 165.1 cm; Wt 108.9 kg
[~2019-05-31 21:03] MED LIST changes: +FLUC150T PO; +METR500T PO
[2019-05-31 21:20] LABS: BILIRUBIN,URINE NEGATIVE (NEG); CLARITY,URINE CLEAR; COLOR,URINE YELLOW; NITRITE,URINE NEGATIVE (NEG); PROTEIN,URINE NEGATIVE (NEG-TRACE); UROBILINOGEN,URINE 0.2 mg/dL (0.2 mg/dL)
[2019-05-31 21:24] LABS: SQUAMOUS EPITHELIAL CELL,UR MOD /LPF; WBC,URINE OCC /HPF (0-4)
[2019-05-31 21:25] LABS: BACTERIA,URINE FEW /HPF (0-FEW)
[2019-05-31 21:28] VITALS: BP 156/75
--- NOTE | 2019-05-31 21:31 | PHYS DOC ---
Past Medical History Past Medical History: Anxiety, Asthma Additional Past Medical Histor: INSULIN RESISTANCE SYNDROME Past Surgical History: Cholecystectomy Additional Past Surgical Histo: WISDOM TEETH EXTRACT Alcohol Use: None Drug Use: None Adult General Chief Complaint Chief Complaint: VAGINAL PROBLEM HPI HPI Patient is a 23 year old Female who presents with a couple weeks ago and was diagnosed with Trichomonas and treated for gonorrhea and chlamydia. Patient states she has not had sexual intercourse since that time but in the last 3 days she is having pressure in the low mid abdomen and states she still having some white discharge. Review of Systems Review of Systems Constitutional: Denies fever or chills [] Eyes: Denies change in visual acuity, redness, or eye pain [] HENT: Denies nasal congestion or sore throat [] Respiratory: Denies cough or shortness of breath [] Cardiovascular: No additional information not addressed in HPI [] GI: low mid abdominal pressure, denies nausea, vomiting, bloody stools or diarrhea [] : Denies dysuria or hematuria [] Musculoskeletal: Denies back pain or joint pain [] Integument: Denies rash or skin lesions [] Neurologic: Denies headache, focal weakness or sensory changes [] Endocrine: Denies polyuria or polydipsia [] All other systems were reviewed and found to be within normal limits, except as documented in this note. Allergies Allergies Allergies Coded Allergies Type Severity Reaction Last Updated Verified No Known Drug Allergies 08/21/15 No Physical Exam Physical Exam Constitutional: Well developed, well nourished, no acute distress, non-toxic appearance. [] HENT: Normocephalic, atraumatic, bilateral external ears normal, oropharynx moist, no oral exudates, nose normal. [] Eyes: PERRLA, EOMI, conjunctiva normal, no discharge. [] Neck: Normal range of motion, no tenderness, supple, no stridor. [] Cardiovascular:Heart rate regular rhythm, no murmur [] Lungs & Thorax: Bilateral breath sounds clear to auscultation [] Abdomen: Bowel sounds normal, soft, Low mid abd pressure tenderness, no masses, no pulsatile masses. [] Skin: Warm, dry, no erythema, no rash. [] Back: No tenderness, no CVA tenderness. [] Extremities: No tenderness, no cyanosis, no clubbing, ROM intact, no edema. [] Neurologic: Alert and oriented X 3, normal motor function, normal sensory function, no focal deficits noted. [] Psychologic: Affect normal, judgement normal, mood normal. [] Current Patient Data Vital Signs Vital Signs Date Time Temp Pulse Resp B/P (MAP) Pulse Ox O2 Delivery O2 Flow Rate FiO2 05/31/19 21:28 98.4 90 18 156/75 (102) 99 Room Air 98.4 Lab Values Laboratory Tests Test 05/31/19 21:05 05/31/19 21:14 Urine Collection Type Unknown Urine Color Yellow Urine Clarity Clear Urine pH 6.0 Urine Specific Midnight 1.020 Urine Protein Negative mg/dL (NEG-TRACE) Urine Glucose (UA) Negative mg/dL (NEG) Urine Ketones (Stick) Negative mg/dL (NEG) Urine Blood Trace (NEG) Urine Nitrite Negative (NEG) Urine Bilirubin Negative (NEG) Urine Urobilinogen Dipstick 0.2 mg/dL (0.2 mg/dL) Urine Leukocyte Esterase Negative (NEG) Urine RBC 1-2 /HPF (0-2) Urine WBC Occ /HPF (0-4) Urine Squamous Epithelial Cells Mod /LPF Urine Bacteria Few /HPF (0-FEW) Urine Mucus Mod /LPF POC Urine HCG, Qualitative Hcg negative (Negative) Microbiology 05/31/19 Wet Prep - Final, Complete EKG EKG [] Radiology/Procedures Radiology/Procedures [] Impressions: [facility] [address] [place] [address] IMAGING REPORT Signed PATIENT: CHRISTOPHER LOWE ACCOUNT: [id number] : 1995 LOCATION: ER AGE: 23 SEX: F EXAM STATUS: REG ER ORD. PHYSICIAN: SJ SALDANA APRN REASON: low abd pain with flank pain PROCEDURE: CT ABDOMEN PELVIS WO CONTRAST CT abdomen and pelvis without contrast. HISTORY: Low abdominal pain, flank pain CT scan of the abdomen and pelvis was done without contrast. Lung bases are clear. There is no effusion. A liver lesion is not identified. Patient's had a cholecystectomy. Spleen and adrenal glands are normal. Pancreas is normal. There is no mass or hydronephrosis in the kidneys. A ureteral calculus is not identified. Appendix is normal. Uterus and ovaries are unremarkable. There is no bowel obstruction or ascites. IMPRESSION: 1. No renal or ureteral calculus noted. 2. No free fluid. 3. Normal appendix. 4. No bowel obstruction or other acute finding. PQRS Compliance Statement: One or more of the following individualized dose reduction techniques were utilized for this examination: 1. Automated exposure control 2. Adjustment of the mA and/or kV according to patient size 3. Use of iterative reconstruction technique Electronically signed by: Justice Kulkarni MD (05/31/2019 10:49 PM) [facility] DICTATED and SIGNED BY: JUSTICE KULKARNI MD DATE: 05/31/19 5386 Course & Med Decision Making Course & Med Decision Making Patient is a 23 year old Female who presents with a couple weeks ago and was diagnosed with Trichomonas and treated for gonorrhea and chlamydia. Patient states she has not had sexual intercourse since that time but in the last 3 days she is having pressure in the low mid abdomen and states she still having some white discharge. She denies vaginal itching, burning or dysuria symptoms. Patient rates her pressure discomfort an 8 out of 10. Abdomen soft and nontender but states that she feels increased pressure with palpation to the low mid abdomen. Patient does deny dysuria symptoms, nausea, vomiting, diarrhea, fevers. Patient states time she has left flank sharp to dull pains that come and go for the last 3 days. No CVA tenderness. Last menstrual period was last week. Patient states she does not want to be treated for Chlamydia or gonorrhea stitches just treated 2 weeks ago and has not had sexual intercourse. Patient is told that she will be called in 48 hours only if the gonorrhea and chlamydia come back positive. Vital signs are within normal limits. Gonorrhea and chlamydia cultures are sent off to lab along with a wet prep. Urinalysis is contaminated but will be sent off for culture. Wet prep is negative for findings. CT SCAN SHOWS 1. No renal or ureteral calculus noted. 2. No free fluid. 3. Normal appendix. 4. No bowel obstruction or other acute finding. She discharged home and follow up with primary care. Patient is to drink plenty of fluid. Pelvic Exam: Reserve Officer present Abdomen: Nontender External Genitalia: Normal Skin Speculum: Normal vaginal mucosa, White non odorous cervical discharge Bimanual: No adnexal masses or tenderness, No CMT Dragon Disclaimer Dragon Disclaimer This electronic medical record was generated, in whole or in part, using a voice recognition dictation system. Departure Departure Impression: Primary Impression: Dysuria Disposition: 01 HOME, SELF-CARE Condition: STABLE Referrals: NO PCP (PCP) Patient Instructions: Abdominal Pain (Nonspecific) Additional Instructions: Drink plenty of fluids. Return if symptoms worsen and we will recheck her urine. SJ SALDANA APRN May 31, 2019 21:31
--- NOTE | 2019-05-31 22:52 | RAD ---
CT abdomen and pelvis without contrast. HISTORY: Low abdominal pain, flank pain CT scan of the abdomen and pelvis was done without contrast. Lung bases are clear. There is no effusion. A liver lesion is not identified. Patient's had a cholecystectomy. Spleen and adrenal glands are normal. Pancreas is normal. There is no mass or hydronephrosis in the kidneys. A ureteral calculus is not identified. Appendix is normal. Uterus and ovaries are unremarkable. There is no bowel obstruction or ascites. IMPRESSION: 1. No renal or ureteral calculus noted. 2. No free fluid. 3. Normal appendix. 4. No bowel obstruction or other acute finding. PQRS Compliance Statement: One or more of the following individualized dose reduction techniques were utilized for this examination: 1. Automated exposure control 2. Adjustment of the mA and/or kV according to patient size 3. Use of iterative reconstruction technique Electronically signed by: Justice Jim MD (05/31/2019 10:49 PM) [facility]
[2019-06-04 18:09] LABS: GC PROBE Negative (Negative)
== END 2019-05-31 23:28 | disposition home or self-care (01) ==
LOC: ER 21:03
DX: R30.0 Dysuria (principal); R10.30 Lower abdominal pain, unspecified; F41.9 Anxiety disorder, unspecified; J45.909 Unspecified asthma, uncomplicated; Z90.49 Acquired absence of other specified parts of digestive tract
CPT/HCPCS: 36415; 74176; 81001; 81025; 87491; 87591; 99285; Q0111

== ENCOUNTER 2019-06-02 11:24 | Emergency (ER) | payer BC ==
[~2019-06-02] VITALS: Ht 165.1 cm; Wt 108.9 kg
[2019-06-02 11:41] VITALS: BP 148/71
[2019-06-02] MEDS ORDERED: AMOX500C PO (11:53)
--- NOTE | 2019-06-02 11:54 | PHYS DOC ---
Past Medical History Past Medical History: Anxiety, Asthma Additional Past Medical Histor: INSULIN RESISTANCE SYNDROME Past Surgical History: Cholecystectomy Additional Past Surgical Histo: WISDOM TEETH EXTRACT Alcohol Use: None Drug Use: None Adult General Chief Complaint Chief Complaint: EARACHE/EAR PAIN [facility] HPI Patient is a 23 year old female who presents with fever, chills, bilateral ear pain last 2 weeks. Patient rates her throbbing year pain a 6 out of 10. Review of Systems Review of Systems Constitutional: fever or chills [] Eyes: Denies change in visual acuity, redness, or eye pain [] HENT: Denies nasal congestion or sore throat. Bilateral ear pain [] Respiratory: Denies cough or shortness of breath [] Cardiovascular: No additional information not addressed in HPI [] GI: Denies abdominal pain, nausea, vomiting, bloody stools or diarrhea [] : Denies dysuria or hematuria [] Musculoskeletal: Denies back pain or joint pain [] Integument: Denies rash or skin lesions [] Neurologic: Denies headache, focal weakness or sensory changes [] Endocrine: Denies polyuria or polydipsia [] All other systems were reviewed and found to be within normal limits, except as documented in this note. Allergies Allergies Allergies Coded Allergies Type Severity Reaction Last Updated Verified No Known Drug Allergies 08/21/15 No Physical Exam Physical Exam Constitutional: Well developed, well nourished, no acute distress, non-toxic appearance. [] HENT: Normocephalic, atraumatic, bilateral external ears normal, oropharynx moist, no oral exudates, nose normal. Bilateral ear tympanic spread.[] Eyes: PERRLA, EOMI, conjunctiva normal, no discharge. [] Neck: Normal range of motion, no tenderness, supple, no stridor. [] Cardiovascular:Heart rate regular rhythm, no murmur [] Lungs & Thorax: Bilateral breath sounds clear to auscultation [] Abdomen: Bowel sounds normal, soft, no tenderness, no masses, no pulsatile masses. [] Skin: Warm, dry, no erythema, no rash. [] Back: No tenderness, no CVA tenderness. [] Extremities: No tenderness, no cyanosis, no clubbing, ROM intact, no edema. [] Neurologic: Alert and oriented X 3, normal motor function, normal sensory function, no focal deficits noted. [] Psychologic: Affect normal, judgement normal, mood normal. [] Current Patient Data Vital Signs Vital Signs Date Time Temp Pulse Resp B/P (MAP) Pulse Ox O2 Delivery O2 Flow Rate FiO2 06/02/19 11:41 98.8 94 16 148/71 (96) 100 Room Air 98.8 EKG EKG [] Radiology/Procedures Radiology/Procedures [] Course & Med Decision Making Course & Med Decision Making Patient is a 23 year old female who presents with fever, chills, bilateral ear pain last 2 weeks. Patient rates her throbbing year pain a 6 out of 10. Patient denies any nasal congestion, nausea, vomiting, diarrhea, abdominal pain, cough, shortness of air, chest pain. Skin pink warm and dry. Mucous members into moist. Patient's been taking Tylenol for fevers of which have only reached 99.3. Bilateral ear tympanic are red. Lungs are clear to patient all lobes. Heart rate regular without murmur. Throat is pink and without exudates or swelling. Dragon Disclaimer Dragon Disclaimer This electronic medical record was generated, in whole or in part, using a voice recognition dictation system. Departure Departure Impression: Primary Impression: Otitis media of both ears Disposition: 01 HOME, SELF-CARE Condition: STABLE Referrals: NO PCP (PCP) Patient Instructions: Otitis Media, Adult Additional Instructions: Continue taking ibuprofen or Tylenol for pain. Drink plenty of fluids. Take medication as prescribed. Scripts Amoxicillin (AMOXICILLIN) 500 Mg Capsule 1 CAP PO BID, #20 CAP Prov: SJ SALDANA MEAT BUTCHER 06/02/19 Problem Qualifiers Primary Impression: Otitis media of both ears Otitis media type: unspecified Qualified Codes: H66.93 - Otitis media, unspecified, bilateral SJ SALDANA MEAT BUTCHER Jun 02, 2019 11:54
== END 2019-06-02 12:04 | disposition home or self-care (01) ==
LOC: ER 11:24
DX: H66.93 Otitis media, unspecified, bilateral (principal); R50.9 Fever, unspecified; F41.9 Anxiety disorder, unspecified; J45.909 Unspecified asthma, uncomplicated; Z90.49 Acquired absence of other specified parts of digestive tract
CPT/HCPCS: 99283

== ENCOUNTER 2019-06-15 11:34 | Emergency (ER) | payer BC ==
[~2019-06-15] VITALS: Ht 167.6 cm; Wt 108.9 kg
[~2019-06-15 11:34] MED LIST changes: +AMOX500C PO
[2019-06-15 11:39] VITALS: BP 115/73
--- NOTE | 2019-06-15 12:39 | PHYS DOC ---
Past Medical History Past Medical History: No Pertinent History, Anxiety, Asthma Additional Past Medical Histor: INSULIN RESISTANCE SYNDROME Past Surgical History: Cholecystectomy Additional Past Surgical Histo: WISDOM TEETH EXTRACT Alcohol Use: None Drug Use: None Adult General Chief Complaint Chief Complaint: EARACHE/EAR PAIN [facility] HPI Patient is a 23 year old AA female who presents to the emergency department w [facility] complaints of pressure in both of her ears and feeling lightheaded today. Patient denies any difficulty speaking, incoordination, headache, numbness, tingling, or weakness. She denies any fever, cough, shortness of breath, nausea, vomiting, diarrhea. Patient states her mother has recently started burning lata in their home and she thinks that that might be triggering her allergies. Patient denies any shortness of breath or wheezing. She denies any pain at this time. Review of Systems Review of Systems Constitutional: Denies fever or chills [] Eyes: Denies change in visual acuity, redness, or eye pain [] HENT: Denies nasal congestion or sore throat; see history of present illness[] Respiratory: Denies cough or shortness of breath [] Cardiovascular: No additional information not addressed in HPI [] GI: Denies abdominal pain, nausea, vomiting, or diarrhea [] Musculoskeletal: Denies back pain or joint pain [] Integument: Denies rash or skin lesions [] Neurologic: Denies headache, focal weakness or sensory changes [] Complete systems were reviewed and found to be within normal limits, except as documented in this note. Allergies Allergies Allergies Coded Allergies Type Severity Reaction Last Updated Verified No Known Drug Allergies 08/21/15 No Physical Exam Physical Exam Constitutional: Well developed, well nourished, no acute distress, non-toxic appearance, obese [] HENT: Normocephalic, atraumatic, bilateral external ears normal, left TM normal, effusion of the right TM with no erythema or perforation, cobblestone appearance of posterior pharynx, oropharynx moist, no oral exudates, nasal turbinates noted to be edematous and erythematous Eyes: PERRLA, EOMI, conjunctiva normal, no discharge, no nystagmus. [] Neck: Normal range of motion, no tenderness, supple, no stridor. [] Cardiovascular:Heart rate regular rhythm, no murmur [] Lungs & Thorax: Bilateral breath sounds clear to auscultation [] Skin: Warm, dry, no erythema, no rash. [] Extremities: No cyanosis, ROM intact Neurologic: Alert and oriented X 3, normal motor function, normal sensory function, no focal deficits noted. [] Psychologic: Affect normal, judgement normal, mood normal. [] Current Patient Data Vital Signs Vital Signs Date Time Temp Pulse Resp B/P (MAP) Pulse Ox O2 Delivery O2 Flow Rate FiO2 06/15/19 11:39 97.9 70 17 115/73 (87) 99 Room Air 97.9 EKG EKG [] Radiology/Procedures Radiology/Procedures [] Course & Med Decision Making Course & Med Decision Making Pertinent Labs and Imaging studies reviewed. (See chart for details) [] Dragon Disclaimer Dragon Disclaimer This electronic medical record was generated, in whole or in part, using a voice recognition dictation system. Departure Departure Impression: Primary Impression: Acute effusion of right ear Additional Impression: Allergic rhinitis Disposition: HOME, SELF-CARE Condition: STABLE Referrals: NO PCP (PCP) Patient Instructions: Allergic Rhinitis Additional Instructions: Recommend that he take an antihistamine such as Claritin or Zyrtec once daily. Also use [id number] Flonase nasal spray, 2 sprays each nare once daily. Tylenol or ibuprofen as needed for pain or fever. Avoid triggers such as smoke, fragrance, dust, and pollen. WITH your primary care doctor if symptoms persist, return to the ER if symptoms worsen. Problem Qualifiers Additional Impression: Allergic rhinitis Allergic rhinitis trigger: unspecified Allergic rhinitis seasonality: unspecified Qualified Codes: J30.9 - Allergic rhinitis, unspecified AMINA SAMPSON DREDGE PUMP OPERATOR Jun 15, 2019 12:39
== END 2019-06-15 12:48 | disposition home or self-care (01) ==
LOC: ER 11:34
DX: H65.01 Acute serous otitis media, right ear (principal); J30.9 Allergic rhinitis, unspecified; R42 Dizziness and giddiness; F41.9 Anxiety disorder, unspecified; Z90.49 Acquired absence of other specified parts of digestive tract
CPT/HCPCS: 99281

== ENCOUNTER 2019-09-18 10:26 | Emergency (ER) | payer BC ==
[~2019-09-18] VITALS: Ht 165.1 cm; Wt 116.7 kg
[2019-09-18] MEDS ORDERED: cefTRIAXone IM 250 MG VIAL IM ONE (11:00)
[2019-09-18] MEDS ORDERED: ONDANSETRON ODT 4 MG TAB.RAPDIS. PO ONE (11:00)
[2019-09-18] MEDS ORDERED: AZITHROMYCIN 250 MG TABLET. PO ONE (11:00)
[2019-09-18 11:05] LABS: BILIRUBIN,URINE NEGATIVE (NEG); CLARITY,URINE CLEAR; COLOR,URINE YELLOW; NITRITE,URINE NEGATIVE (NEG); PROTEIN,URINE NEGATIVE (NEG-TRACE); UROBILINOGEN,URINE 0.2 mg/dL (0.2 mg/dL)
--- NOTE | 2019-09-18 11:06 | PHYS DOC ---
Past Medical History Past Medical History: Anxiety, Asthma Additional Past Medical Histor: "prediabetic" Past Surgical History: Cholecystectomy Additional Past Surgical Histo: WISDOM TEETH EXTRACT Alcohol Use: None Drug Use: None Adult General Chief Complaint Chief Complaint: SEXUALLY TRANSMITTED DISEASE HPI HPI Patient is a 23 year old female who presents with 1 week of burning with urination, vaginal itching and white discharge. Patient states that a woman who had intercourse with them and she has currently been having sexual intercourse with came up to her and stated that she tested positive for a sexually transmitted disease but did not tell her which one. Review of Systems Review of Systems : vaginal discharge and itching, dysuria or denies hematuria [] All other systems were reviewed and found to be within normal limits, except as documented in this note. Current Medications Current Medications Current Medications Medications (Trade) Dose Ordered Sig/Ryan Start Time Stop Time Status Last Admin Dose Admin Azithromycin (Zithromax) 1,000 mg 1X ONCE 09/18/19 11:00 09/18/19 11:05 DC 09/18/19 11:14 1,000 MG Ceftriaxone Sodium (Rocephin Im) 250 mg 1X ONCE 09/18/19 11:00 09/18/19 11:05 DC 09/18/19 11:17 250 MG Ondansetron HCl (Zofran Odt) 4 mg 1X ONCE 09/18/19 11:00 09/18/19 11:05 DC 09/18/19 11:16 4 MG Allergies Allergies Allergies Coded Allergies Type Severity Reaction Last Updated Verified No Known Drug Allergies 08/21/15 No Physical Exam Physical Exam Constitutional: Well developed, well nourished, no acute distress, non-toxic appearance. [] Skin: Warm, dry, no erythema, no rash. [] Back: No tenderness, no CVA tenderness. [] Extremities: No tenderness, no cyanosis, no clubbing, ROM intact, no edema. [] Neurologic: Alert and oriented X 3, normal motor function, normal sensory function, no focal deficits noted. [] Psychologic: Affect normal, judgement normal, mood normal. [] Current Patient Data Vital Signs Vital Signs Date Time Temp Pulse Resp B/P (MAP) Pulse Ox O2 Delivery O2 Flow Rate FiO2 09/18/19 10:39 98.8 79 16 133/75 (94) 100 Room Air 98.8 Lab Values Laboratory Tests Test 09/18/19 10:45 09/18/19 10:57 Urine Collection Type Unknown Urine Color Yellow Urine Clarity Clear Urine pH 6.0 Urine Specific [place] >=1.030 Urine Protein Negative mg/dL (NEG-TRACE) Urine Glucose (UA) Negative mg/dL (NEG) Urine Ketones (Stick) Negative mg/dL (NEG) Urine Blood Small (NEG) Urine Nitrite Negative (NEG) Urine Bilirubin Negative (NEG) Urine Urobilinogen Dipstick 0.2 mg/dL (0.2 mg/dL) Urine Leukocyte Esterase Negative (NEG) Urine RBC 6-10 /HPF (0-2) Urine WBC 0 /HPF (0-4) Urine Squamous Epithelial Cells Few /LPF Urine Bacteria Few /HPF (0-FEW) Urine Mucus Mod /LPF POC Urine HCG, Qualitative Hcg negative (Negative) Microbiology 09/18/19 Wet Prep - Final, Complete EKG EKG [] Radiology/Procedures Radiology/Procedures [] Course & Med Decision Making Course & Med Decision Making Abdomen soft and nontender. Skin pink warm and dry. Afebrile. Patient denies vomiting, nausea, abdominal pain, fever, chest pain, shortness of air, numbness or tingling, headache, vaginal bleeding that is abnormal. Patient is treated for chlamydia and Gonorrhea today and is told that she will get a phone call in 48 hours only if her chlamydia or gonorrhea comes back positive. Pelvic Exam: Human Resources Operations Specialist present Abdomen: Nontender External Genitalia: Normal Skin Speculum: Normal vaginal mucosa, white cervical discharge Bimanual: No adnexal masses or tenderness, No CMT Dragon Disclaimer Dragon Disclaimer This electronic medical record was generated, in whole or in part, using a voice recognition dictation system. Departure Departure Impression: Primary Impression: Sexually transmissible disease Disposition: HOME, SELF-CARE Condition: STABLE Referrals: NO PCP (PCP) Patient Instructions: Sexually Transmitted Disease Additional Instructions: Follow up with primary care provider. You have been treated for median gonorrhea today in the ED. You will be called only if you're chlamydia or gonorrhea comes back positive for 48 hours. SJ SALDANA APRN Sep 18, 2019 11:06
[2019-09-18 11:18] LABS: SQUAMOUS EPITHELIAL CELL,UR FEW /LPF
[2019-09-18 11:19] LABS: BACTERIA,URINE FEW /HPF (0-FEW); WBC,URINE 0 /HPF (0-4)
[2019-09-18 12:02] VITALS: BP 116/53
[2019-09-19 17:10] LABS: GC PROBE Negative (Negative)
== END 2019-09-18 12:02 | disposition home or self-care (01) ==
LOC: ER 10:26
DX: A64 Unspecified sexually transmitted disease (principal); F41.9 Anxiety disorder, unspecified; J45.909 Unspecified asthma, uncomplicated; Z90.49 Acquired absence of other specified parts of digestive tract
CPT/HCPCS: 81001; 81025; 87491; 87591; 96372; 99284; J0696; Q0111; Q0144; Q0162

== ENCOUNTER 2020-01-16 11:00 | Emergency (ER) | payer BC ==
[~2020-01-16] VITALS: Ht 167.6 cm; Wt 113.6 kg
[2020-01-16 11:19] VITALS: BP 147/63
[2020-01-16] MEDS ORDERED: AMOX875T PO (11:28)
--- NOTE | 2020-01-16 11:29 | PHYS DOC ---
Past Medical History Past Medical History: Anxiety, Asthma Additional Past Medical Histor: "prediabetic" Past Surgical History: Cholecystectomy Additional Past Surgical Histo: WISDOM TEETH EXTRACT Smoking Status: Never Smoker Alcohol Use: None Drug Use: None Adult General Chief Complaint Chief Complaint: EARACHE/EAR PAIN [facility] HPI Patient is a 24 year old female who presents with bilateral ear pain and popping since the beginning of the week. The patient denies fever. The patient does states she's been having a little bit of runny nose. Denies any other symptoms. Complete ROS were reviewed and found to be within normal limits, except as documented in the [facility] Allergies Allergies Allergies Coded Allergies Type Severity Reaction Last Updated Verified No Known Drug Allergies 08/21/15 No Physical Exam Physical Exam Constitutional: Well developed, well nourished, no acute distress, non-toxic appearance. [] HENT: Normocephalic, atraumatic, bilateral external ears normal, bilateral tympanic membranes are erythema with loss of landmarks, oropharynx moist, no oral exudates, nose normal. [] Neurologic: Alert and oriented X 3, normal motor function, normal sensory function, no focal deficits noted. [] Psychologic: Affect normal, judgement normal, mood normal. [] Current Patient Data Vital Signs Vital Signs Date Time Temp Pulse Resp B/P (MAP) Pulse Ox O2 Delivery O2 Flow Rate FiO2 01/16/20 11:19 98.6 83 16 147/63 (91) 100 Room Air 98.6 EKG EKG [] Radiology/Procedures Radiology/Procedures [] Course & Med Decision Making Course & Med Decision Making Pertinent Labs and Imaging studies reviewed. (See chart for details) Patient has bilateral otitis media. Will place the patient on amoxicillin. I will then also have the patient follow-up with her primary care doctor. Cat Disclaimer Cat Disclaimer This electronic medical record was generated, in whole or in part, using a voice recognition dictation system. Departure Departure Impression: Primary Impression: Otitis media of both ears Disposition: 01 HOME, SELF-CARE Condition: STABLE Referrals: NO PCP (PCP) Patient Instructions: Otitis Media, Adult Additional Instructions: Thank you for visiting [facility]. We appreciate you trusting us with your care. If any additional problems come up don't hesitate to return to visit us. Please follow up with your primary care provider so they can plan additional care if needed and know about the problem that you had. If symptoms worsen come back to the Emergency Department. Any concerning symptoms that start such as chest pain, shortness of air, weakness or numbness on one side of the body, running high fevers or any other concerning symptoms return to the ER. You have been prescribed an antibiotic today to help fight your infection. Please take all of the antibiotic as directed. If after 48 hours the infection is not improving, please return for more care. If the infection worsens, return to ER for additional care. Please also get some Zyrtec [id number] and take as label instructions dire ct. Scripts Amoxicillin (AMOXICILLIN) 875 Mg Tablet 1 TAB PO BID for 7 Days, #14 TAB Prov: FEDERICO ROBERTSON APRN 01/16/20 Problem Qualifiers Primary Impression: Otitis media of both ears Otitis media type: unspecified Qualified Codes: H66.93 - Otitis media, unspecified, bilateral FEDERICO ROBERTSON APRN Jan 16, 2020 11:29
== END 2020-01-16 11:44 | disposition home or self-care (01) ==
LOC: ER 11:00
DX: H66.93 Otitis media, unspecified, bilateral (principal); R09.89 Other specified symptoms and signs involving the circulatory and respiratory systems; F41.9 Anxiety disorder, unspecified; J45.909 Unspecified asthma, uncomplicated; Z90.49 Acquired absence of other specified parts of digestive tract; Z98.890 Other specified postprocedural states
CPT/HCPCS: 99283

== ENCOUNTER 2020-01-18 15:31 | Emergency (ER) | payer BC ==
[~2020-01-18] VITALS: Ht 167.6 cm; Wt 113.0 kg
[2020-01-18 15:50] VITALS: BP 124/60
[2020-01-18 16:16] LABS: BILIRUBIN,URINE NEGATIVE (NEG); CLARITY,URINE CLEAR; COLOR,URINE YELLOW; NITRITE,URINE NEGATIVE (NEG); PH,URINE 5.5; PROTEIN,URINE NEGATIVE (NEG-TRACE); UROBILINOGEN,URINE 0.2 mg/dL (0.2 mg/dL)
--- NOTE | 2020-01-18 16:19 | PHYS DOC ---
Past Medical History Past Medical History: Anxiety, Asthma Additional Past Medical Histor: "prediabetic" Past Surgical History: Cholecystectomy Additional Past Surgical Histo: WISDOM TEETH EXTRACT Smoking Status: Never Smoker Alcohol Use: None Drug Use: None Adult General Chief Complaint Chief Complaint: PAIN ON URINATION HPI HPI Patient is a 24 year old female with a history of anxiety, asthma, who presents to the ED today complaining of vaginal itching and discharged that began 2 days ago. Patient reports being started on antibiotics for an ear infection 3 days ago. She believes she has a yeast infection. Denies any concerns for STDs. She is currently on amoxicillin. Review of Systems Review of Systems Constitutional: Denies fever or chills [] GI: Reports vaginal discharge. Denies abdominal pain, nausea, vomiting, bloody stools or diarrhea [] : Denies dysuria or hematuria [] Musculoskeletal: Denies back pain or joint pain [] Integument: Denies rash or skin lesions [] Neurologic: Denies headache, focal weakness or sensory changes [] All other systems were reviewed and found to be within normal limits, except as documented in this note. Allergies Allergies Allergies Coded Allergies Type Severity Reaction Last Updated Verified No Known Drug Allergies 08/21/15 No Physical Exam Physical Exam Constitutional: Well developed, well nourished, no acute distress, non-toxic appearance. [] Abdomen: Bowel sounds normal, soft, no tenderness, no masses, no pulsatile masses. [] Pelvic exam= external pelvic appears normal, cervix is not visualized due to body habitus, no CMT, no adnexal tenderness, trace amount of brownish discharge in the vaginal vault Skin: Warm, dry, no erythema, no rash. [] Back: No tenderness, no CVA tenderness. [] Extremities: No tenderness, no cyanosis, no clubbing, ROM intact, no edema. [] Neurologic: Alert and oriented X 3, normal motor function, normal sensory function, no focal deficits noted. [] Psychologic: Affect normal, judgement normal, mood normal. [] Current Patient Data Vital Signs Vital Signs Date Time Temp Pulse Resp B/P (MAP) Pulse Ox O2 Delivery O2 Flow Rate FiO2 01/18/20 15:50 98.3 94 20 124/60 (81) 99 Room Air 98.3 Lab Values Laboratory Tests Test 01/18/20 15:45 Urine Collection Type Unknown Urine Color Yellow Urine Clarity Clear Urine pH 5.5 Urine Specific [place] >=1.030 Urine Protein Negative mg/dL (NEG-TRACE) Urine Glucose (UA) Negative mg/dL (NEG) Urine Ketones (Stick) Negative mg/dL (NEG) Urine Blood Small (NEG) Urine Nitrite Negative (NEG) Urine Bilirubin Negative (NEG) Urine Urobilinogen Dipstick 0.2 mg/dL (0.2 mg/dL) Urine Leukocyte Esterase Negative (NEG) Urine RBC Occ /HPF (0-2) Urine WBC 0 /HPF (0-4) Urine Squamous Epithelial Cells Few /LPF Urine Bacteria 0 /HPF (0-FEW) Urine Mucus Mod /LPF Microbiology 01/18/20 Wet Prep - Final, Complete EKG EKG [] Radiology/Procedures Radiology/Procedures [] Course & Med Decision Making Course & Med Decision Making Pertinent Labs and Imaging studies reviewed. (See chart for details) This is a 24-year-old female patient presented to the ED today with vaginal discharge that began 2 days ago. Patient is currently on antibiotics and believes she has a yeast infection. Urine analysis is negative, white prep is negative. Discharged to home. Recommended probiotics/yogurt while on antibiotics. Given prescription fluconazole. F/u with PCP or OB in 1 week Cat Disclaimer Cat Disclaimer This electronic medical record was generated, in whole or in part, using a voice recognition dictation system. Departure Departure Impression: Primary Impression: Vaginal discharge Disposition: HOME, SELF-CARE Condition: STABLE Referrals: UNKNOWN PCP NAME (PCP) follow up with your OBGYN or primary care doctor in 1-2 weeks Patient Instructions: Vaginitis, Monilial Additional Instructions: You were seen for vaginal discharge, take the prescribed fluconazole as ordered please consider taking probiotics or yogurt 3 times a day while on antibiotics this will help prevent yeast infection and reduce some of your symptoms. Scripts Fluconazole (DIFLUCAN) 150 Mg Tablet 1 TAB PO ONCE, #1 TAB 1 Refill Take on tablet today and repeat in 1 week Prov: ANISA MAHONEY APRN 01/18/20 ANISA MAHONEY APRN Jan 18, 2020 16:19
[2020-01-18 16:23] LABS: BACTERIA,URINE 0 /HPF (0-FEW); RBC,URINE OCC /HPF (0-2); SQUAMOUS EPITHELIAL CELL,UR FEW /LPF; WBC,URINE 0 /HPF (0-4)
[2020-01-18] MEDS ORDERED: FLUC150T PO (16:37)
== END 2020-01-18 17:08 | disposition home or self-care (01) ==
LOC: ER 15:31
DX: N89.8 Other specified noninflammatory disorders of vagina (principal); L29.2 Pruritus vulvae; F41.9 Anxiety disorder, unspecified; J45.909 Unspecified asthma, uncomplicated; Z90.49 Acquired absence of other specified parts of digestive tract; Z98.890 Other specified postprocedural states
CPT/HCPCS: 81001; 87491; 87591; 99283; Q0111

== ENCOUNTER 2020-03-03 13:36 | Emergency (ER) | payer BC ==
[~2020-03-03] VITALS: Ht 167.6 cm; Wt 109.0 kg
--- NOTE | 2020-03-03 14:23 | RAD ---
Examination: CHEST AP ONLY History: Sore throat Comparison: 09/12/2018 two-view chest x-ray exam Findings: AP portable upright frontal view of the chest was obtained. The cardiomediastinal silhouette is normal. Lungs are clear. There is no pneumothorax. No pleural effusion is appreciated. No acute bone abnormality. IMPRESSION: No acute cardiopulmonary process. Electronically signed by: Marcelino Randall MD (03/03/2020 2:20 PM) [id number]
[2020-03-03 14:26] VITALS: BP 137/60
[2020-03-03 14:42] LABS: INFLUENZA A PATIENT NEGATIVE (NEGATIVE); INFLUENZA B PATIENT NEGATIVE (NEGATIVE)
[2020-03-03] MEDS ORDERED: AZIT250T PO (15:06)
--- NOTE | 2020-03-03 15:06 | PHYS DOC ---
Past Medical History Past Medical History: Anxiety, Asthma Additional Past Medical Histor: "prediabetic" Past Surgical History: Cholecystectomy Additional Past Surgical Histo: WISDOM TEETH EXTRACT Smoking Status: Never Smoker Alcohol Use: None Drug Use: None General Adult EDM: Chief Complaint: SORE THROAT HPI: HPI: Patient is a 24 year old female with history of anxiety and asthma who presents with complaint of sore throat. Patient complaining of constant sore throat for the last 2 weeks without fever, shortness of breath, cough and congestion, sick contact, myalgia, neck pain, history of frequent sore throat. Patient rated her pain as a moderate pain and is concerned for taking care of her mother who is currently admitted at [facility] with negative COVID-19 test. Review of Systems: Review of Systems: Constitutional: Denies fever or chills. [] Eyes: Denies change in visual acuity. [] HENT: Denies nasal congestion, report sore throat. [] Respiratory: Denies cough or shortness of breath. [] Cardiovascular: Denies chest pain or edema. [] GI: Denies abdominal pain, nausea, vomiting, bloody stools or diarrhea. [] : Denies dysuria. [] Musculoskeletal: Denies back pain or joint pain. [] Integument: Denies rash. [] Neurologic: Denies headache, focal weakness or sensory changes. [] Endocrine: Denies polyuria or polydipsia. [] Lymphatic: Denies swollen glands. [] Psychiatric: Denies depression or anxiety. [] Heart Score: Risk Factors: Risk Factors: DM, Current or recent (<one month) smoker, HTN, HLP, family history of CAD, obesity. Risk Scores: Score 0 - 3: 2.5% MACE over next 6 weeks - Discharge Home Score 4 - 6: 20.3% MACE over next 6 weeks - Admit for Clinical Observation Score 7 - 10: 72.7% MACE over next 6 weeks - Early Invasive Strategies Allergies: Allergies: Allergies Coded Allergies Type Severity Reaction Last Updated Verified No Known Drug Allergies 08/21/15 No Physical Exam: PE: Constitutional: Well developed, well nourished, no acute distress, non-toxic appearance. [] HENT: Normocephalic, atraumatic, bilateral external ears normal, oropharynx moist, no oral exudates, nose normal. [] Eyes: PERRLA, EOMI, conjunctiva normal, no discharge. [] Neck: Normal range of motion, no tenderness, supple, no stridor. [] Cardiovascular:Heart rate regular rhythm, no murmur [] Lungs & Thorax: Bilateral breath sounds clear to auscultation [] Neurologic: Alert and oriented X 3, normal motor function, normal sensory function, no focal deficits noted. [] Psychologic: Affect normal, judgement normal, mood normal. [] Current Patient Data: Labs: Laboratory Tests Test 03/03/20 14:15 Influenza Type A Antigen Negative (NEGATIVE) Influenza Type B Antigen Negative (NEGATIVE) Group A Streptococcus Rapid Negative (NEGATIVE) Vital Signs: Vital Signs Date Time Temp Pulse Resp B/P (MAP) Pulse Ox O2 Delivery O2 Flow Rate FiO2 03/03/20 14:26 98.6 72 16 137/60 (85) 99 Room Air 98.6 EKG: EKG: [] Radiology/Procedures: Radiology/Procedures: [facility] [address] [place] [address] IMAGING REPORT Signed PATIENT: CHRISTOPHER LOWE AACCOUNT: [id number] : 1995 LOCATION: ER AGE: 24 SEX: F EXAM STATUS: REG ER ORD. PHYSICIAN: HOWARD LEWIS MD REASON: sore throat PROCEDURE: CHEST AP ONLY Examination: CHEST AP ONLY History: Sore throat Comparison: 09/12/2018 two-view chest x-ray exam Findings: AP portable upright frontal view of the chest was obtained. The cardiomediastinal silhouette is normal. Lungs are clear. There is no pneumothorax. No pleural effusion is appreciated. No acute bone abnormality. IMPRESSION: No acute cardiopulmonary process. Electronically signed by: Marcelino Lainez MD (03/03/2020 2:20 PM) [id number] DICTATED and SIGNED BY: MARCELINO LAINEZ MD DATE: 03/03/20 1420 Course & Med Decision Making: Course & Med Decision Making Pertinent Labs and Imaging studies reviewed. (See chart for details) Evaluation of patient in ER showed 24-year-old female patient with complaining of sore throat for 2 weeks. Patient had negative chest x-ray, rapid strep and flu test. Plan discharge patient home with diagnosis of acute pharyngitis. She did not have sign of COVID 19. [place] Disclaimer: Cat Disclaimer: This electronic medical record was generated, in whole or in part, using a voice recognition dictation system. Departure Departure Impression: Primary Impression: Acute pharyngitis Qualified Codes: J02.9 - Acute pharyngitis, unspecified Disposition: HOME, SELF-CARE (At 1504) Condition: STABLE Referrals: UNKNOWN PCP NAME (PCP) Patient Instructions: Viral and Bacterial Pharyngitis Additional Instructions: Drink plenty of liquids Follow-up with your primary care physician in 3-5 days Return to ER if not getting better Thank you for visiting [facility]. We appreciate you trusting us with your care. If any additional problems come up don't hesitate to return to visit us. Please follow up with your primary care provider so they can plan additional care if needed and know about the problem that you had. If symptoms worsen come back to the Emergency Department. Any concerning symptoms that start such as chest pain, shortness of air, weakness or numbness on one side of the body, running high fevers or any other concerning symptoms return to the ER. Scripts Azithromycin (ZITHROMAX) 250 Mg Tablet 250 MG PO as directed for ANTI-BIOTIC, #6 TAB 0 Refills Take 2 PO x 1 days Then take 1 PO q 24 hour for the next 4 days Prov: HOWARD LEWIS MD 03/03/20 COVID-19 Assessment: COVID-19 Patient Risks: Age 65 or older: No Sign of co-morbidity: No Exp to person + for COVID: No Exp to PUI: No Travel from affected area: No Lower respiratory symptoms: No Fever: No Other: No PPE Use: Full PPE with N95 mask or PAPR: Yes HOWARD LEWIS MD Mar 03, 2020 15:06
== END 2020-03-03 15:19 | disposition home or self-care (01) ==
LOC: ER 13:36
DX: J02.9 Acute pharyngitis, unspecified (principal); F41.9 Anxiety disorder, unspecified; J45.909 Unspecified asthma, uncomplicated; Z90.49 Acquired absence of other specified parts of digestive tract; Z98.890 Other specified postprocedural states
CPT/HCPCS: 71045; 87070; 87804; 87880; 99284

== ENCOUNTER 2020-03-13 14:19 | Emergency (ER) | payer BC ==
[~2020-03-13] VITALS: Ht 167.6 cm; Wt 109.0 kg
[~2020-03-13 14:19] MED LIST changes: +AZIT250T PO
[2020-03-13 15:25] VITALS: BP 139/68
[2020-03-13] MEDS ORDERED: AMOX1TAB61 PO (16:07)
--- NOTE | 2020-03-13 16:08 | PHYS DOC ---
Past Medical History Past Medical History: Anxiety, Asthma Additional Past Medical Histor: "prediabetic" Past Surgical History: Cholecystectomy Additional Past Surgical Histo: WISDOM TEETH EXTRACT Smoking Status: Never Smoker Alcohol Use: None Drug Use: None General Adult EDM: Chief Complaint: EARACHE/EAR PAIN HPI: HPI: Patient is a 24 year old female who presents with bilateral ear pain. Patient states she just finished a amoxicillin antibiotic last week for a respiratory infection but awoke this morning with severe ear pain and feeling off balance. Denies fever, cough, sore throat, dizziness, headache. Review of Systems: Review of Systems: HENT: Denies nasal congestion or sore throat. Ear pain.[] Heart Score: Risk Factors: Risk Factors: DM, Current or recent (<one month) smoker, HTN, HLP, family his tory of CAD, obesity. Risk Scores: Score 0 - 3: 2.5% MACE over next 6 weeks - Discharge Home Score 4 - 6: 20.3% MACE over next 6 weeks - Admit for Clinical Observation Score 7 - 10: 72.7% MACE over next 6 weeks - Early Invasive Strategies Allergies: Allergies: Allergies Coded Allergies Type Severity Reaction Last Updated Verified No Known Drug Allergies 08/21/15 No Physical Exam: PE: Constitutional: Well developed, well nourished, no acute distress, non-toxic appearance. [] HENT: Normocephalic, atraumatic, bilateral external ears normal, oropharynx moist, no oral exudates, nose normal. Bilateral tympanic reddness[] Eyes: PERRLA, EOMI, conjunctiva normal, no discharge. [] Neck: Normal range of motion, no tenderness, supple, no stridor. [] Cardiovascular:Heart rate regular rhythm, no murmur [] Lungs & Thorax: Bilateral breath sounds clear to auscultation [] Abdomen: Bowel sounds normal, soft, no tenderness, no masses, no pulsatile masses. [] Skin: Warm, dry, no erythema, no rash. [] Back: No tenderness, no CVA tenderness. [] Extremities: No tenderness, no cyanosis, no clubbing, ROM intact, no edema. [] Neurologic: Alert and oriented X 3, normal motor function, normal sensory function, no focal deficits noted. [] Psychologic: Affect normal, judgement normal, mood normal. [] Current Patient Data: Vital Signs: Vital Signs Date Time Temp Pulse Resp B/P (MAP) Pulse Ox O2 Delivery O2 Flow Rate FiO2 03/13/20 15:25 98.1 71 18 139/68 (91) 100 Room Air 98.1 EKG: EKG: [] Radiology/Procedures: Radiology/Procedures: [] Course & Med Decision Making: Course & Med Decision Making Pertinent Labs and Imaging studies reviewed. (See chart for details) Bilateral tympanics are red. Alert and Oriented. Skin pink warm and dry. Throat is red but no exudates. Lungs clear to auscultation. Speaks in full clear sentences. Patient states she is eating and drinking as normal. [] Dragon Disclaimer: [employer] Disclaimer: This electronic medical record was generated, in whole or in part, using a voice recognition dictation system. Departure Departure Impression: Primary Impression: Otitis media of both ears Qualified Codes: H66.006 - Acute suppurative otitis media without spontaneous rupture of ear drum, recurrent, bilateral Disposition: 01 HOME, SELF-CARE Condition: STABLE Referrals: UNKNOWN PCP NAME (PCP) Patient Instructions: Otitis Media, Adult Additional Instructions: Follow up with primary care provider. Take medications until totally gone. Scripts Amoxicillin/Potassium Clav (AUGMENTIN 875-125 TABLET) 1 Each Tablet 1 TAB PO BID for 10 Days, #20 TAB 0 Refills Prov: SJ SALDANA APRN 03/13/20 SJ SALDANA APRN Mar 13, 2020 16:07
== END 2020-03-13 16:24 | disposition home or self-care (01) ==
LOC: ER 14:19
DX: H66.006 Acute suppurative otitis media without spontaneous rupture of ear drum, recurrent, bilateral (principal); J45.909 Unspecified asthma, uncomplicated
CPT/HCPCS: 99283

== ENCOUNTER 2020-06-07 12:03 | Emergency (ER) | payer BC ==
[~2020-06-07] VITALS: Ht 167.6 cm; Wt 109.0 kg
[2020-06-07 13:01] VITALS: BP 137/60
--- NOTE | 2020-06-07 13:08 | PHYS DOC ---
Past Medical History Past Medical History: Anxiety, Asthma Additional Past Medical Histor: "prediabetic" Past Surgical History: Cholecystectomy Additional Past Surgical Histo: WISDOM TEETH EXTRACT Smoking Status: Never Smoker Alcohol Use: None Drug Use: None General Adult EDM: Chief Complaint: EARACHE/EAR PAIN HPI: HPI: Patient is a 24 year old female who presents with bilateral ear pain since . She gets frequent ear infections. She states as a kid she had to have tubes put in her ears and she is afraid she went to do the same thing. She is asking also for referral for an ENT doctor. Bilateral tympanic's are throbbing at a 9 out of 10. She denies any radiation. Patient denies nausea, vomiting, diarrhea, fever, chest pain, shortness of air, dizziness, headache, cough, vision changes. She states that her allergies have began acting up with a sneezing and nasal congestion and then the ears began hurting . Nothing makes the pain worse or better. Review of Systems: Review of Systems: Constitutional: Denies fever or chills. [] Eyes: Denies change in visual acuity. [] HENT: nasal congestion or denies sore throat. Bilateral ear pain. [] Respiratory: Denies cough or shortness of breath. [] Cardiovascular: Denies chest pain or edema. [] GI: Denies abdominal pain, nausea, vomiting, bloody stools or diarrhea. [] : Denies dysuria. [] Musculoskeletal: Denies back pain or joint pain. [] Integument: Denies rash. [] Neurologic: Denies headache, focal weakness or sensory changes. [] Endocrine: Denies polyuria or polydipsia. [] Lymphatic: Denies swollen glands. [] Psychiatric: Denies depression or anxiety. [] Heart Score: Risk Factors: Risk Factors: DM, Current or recent (<one month) smoker, HTN, HLP, family history of CAD, obesity. Risk Scores: Score 0 - 3: 2.5% MACE over next 6 weeks - Discharge Home Score 4 - 6: 20.3% MACE over next 6 weeks - Admit for Clinical Observation Score 7 - 10: 72.7% MACE over next 6 weeks - Early Invasive Strategies Allergies: Allergies: Allergies Coded Allergies Type Severity Reaction Last Updated Verified No Known Drug Allergies 08/21/15 No Physical Exam: PE: Constitutional: Well developed, well nourished, no acute distress, non-toxic appearance. [] HENT: Normocephalic, atraumatic, bilateral external ears normal, oropharynx moist, no oral exudates, nose normal. Left ear tympanic is red and right tympanic is pink. [] Eyes: PERRLA, EOMI, conjunctiva normal, no discharge. [] Neck: Normal range of motion, no tenderness, supple, no stridor. [] Cardiovascular:Heart rate regular rhythm, no murmur [] Lungs & Thorax: Bilateral breath sounds clear to auscultation [] Abdomen: Bowel sounds normal, soft, no tenderness, no masses, no pulsatile masses. [] Skin: Warm, dry, no erythema, no rash. [] Back: No tenderness, no CVA tenderness. [] Extremities: No tenderness, no cyanosis, no clubbing, ROM intact, no edema. [] Neurologic: Alert and oriented X 3, normal motor function, normal sensory function, no focal deficits noted. [] Psychologic: Affect normal, judgement normal, mood normal. [] EKG: EKG: [] Radiology/Procedures: Radiology/Procedures: [] Course & Med Decision Making: Course & Med Decision Making Pertinent Labs and Imaging studies reviewed. (See chart for details) Alert and oriented. Ambulatory with steady gait. Skin pink warm and dry. Vital signs within normal limits. Afebrile. Speaks in full clear sentences. Left ear tympanic is reddened but intact. Right ear tympanic is pink but intact. Throat is pink without swelling or exudates. No sinus pain with palpation. [] Dragon Disclaimer: Cat Disclaimer: This electronic medical record was generated, in whole or in part, using a voice recognition dictation system. Departure Departure Impression: Primary Impression: Otitis media of both ears Qualified Codes: H66.003 - Acute suppurative otitis media without spontaneous rupture of ear drum, bilateral Disposition: 01 HOME, SELF-CARE Condition: STABLE Referrals: UNKNOWN PCP NAME (PCP) TROY DICKEY MD Patient Instructions: Otitis Media, Adult Additional Instructions: Take with take medication as prescribed. Take medication with food. Take ibupr ofen for your pain. Follow-up with ENT that I have referred you with a soon as possible. Scripts Amoxicillin (AMOXICILLIN) 500 Mg Capsule 1 CAP PO BID, #20 CAP Prov: SJ SALDANA APRN 06/07/20 Justicifation of Admission Dx: Justifications for Admission: Justification of Admission Dx: N/A SJ SALDANA APRN Jun 07, 2020 13:08
[2020-06-07] MEDS ORDERED: AMOX500C PO (13:15)
== END 2020-06-07 13:19 | disposition home or self-care (01) ==
LOC: ER 12:03
DX: H66.003 Acute suppurative otitis media without spontaneous rupture of ear drum, bilateral (principal); J45.909 Unspecified asthma, uncomplicated
CPT/HCPCS: 99283

== ENCOUNTER 2020-07-08 14:25 | Emergency (ER) | payer BC ==
[~2020-07-08] VITALS: Ht 167.6 cm; Wt 118.2 kg
[2020-07-08 14:35] VITALS: BP 130/72
[2020-07-08 14:48] LABS: BILIRUBIN,URINE NEGATIVE (NEG); CLARITY,URINE CLEAR; COLOR,URINE YELLOW; NITRITE,URINE NEGATIVE (NEG); PROTEIN,URINE NEGATIVE (NEG-TRACE)
[2020-07-08 14:53] LABS: BACTERIA,URINE FEW /HPF (0-FEW); SQUAMOUS EPITHELIAL CELL,UR MOD /LPF; WBC,URINE OCC /HPF (0-4)
[2020-07-08] MEDS ORDERED: CEPH-264 PO (15:01)
--- NOTE | 2020-07-08 15:02 | PHYS DOC ---
Past Medical History Past Medical History: No Pertinent History, Anxiety, Asthma Additional Past Medical Histor: "prediabetic" Past Surgical History: Cholecystectomy Additional Past Surgical Histo: WISDOM TEETH EXTRACT Smoking Status: Never Smoker Alcohol Use: None Drug Use: None General Adult EDM: Chief Complaint: PAIN ON URINATION HPI: HPI: Patient is a 24 year old female who presents with pressure and burning with urination for the last week. She is denies any abnormal vaginal discharge or concern for sexually transmitted diseases. She does not want to treated or checked for STDs today. Patient states she has had some nausea. Patient has a history of anxiety, asthma, cholecystectomy. Patient denies nausea, vomiting, abdominal pain, CVA tenderness, diarrhea, fever, vaginal discharge, chest pain, shortness of air, cough. Patient states she has not had penetrative intercourse but she has had a sex toy used on her externally. Patient rates her discomfort a 4 out of 10. Review of Systems: Review of Systems: Constitutional: Denies fever or chills. [] Eyes: Denies change in visual acuity. [] HENT: Denies nasal congestion or sore throat. [] Respiratory: Denies cough or shortness of breath. [] Cardiovascular: Denies chest pain or edema. [] GI: low mid abdominal pressure, nausea, denies vomiting, bloody stools or diarrhea. [] : dysuria. [] Musculoskeletal: Denies back pain or joint pain. [] Integument: Denies rash. [] Neurologic: Denies headache, focal weakness or sensory changes. [] Endocrine: Denies polyuria or polydipsia. [] Lymphatic: Denies swollen glands. [] Psychiatric: Denies depression or anxiety. [] Heart Score: Risk Factors: Risk Factors: DM, Current or recent (<one month) smoker, HTN, HLP, family history of CAD, obesity. Risk Scores: Score 0 - 3: 2.5% MACE over next 6 weeks - Discharge Home Score 4 - 6: 20.3% MACE over next 6 weeks - Admit for Clinical Observation Score 7 - 10: 72.7% MACE over next 6 weeks - Early Invasive Strategies Allergies: Allergies: Allergies Coded Allergies Type Severity Reaction Last Updated Verified No Known Drug Allergies 08/21/15 No Physical Exam: PE: Constitutional: Well developed, well nourished, no acute distress, non-toxic appearance. [] HENT: Normocephalic, atraumatic, bilateral external ears normal, oropharynx moist, no oral exudates, nose normal. [] Eyes: PERRLA, EOMI, conjunctiva normal, no discharge. [] Neck: Normal range of motion, no tenderness, supple, no stridor. [] Cardiovascular:Heart rate regular rhythm, no murmur [] Lungs & Thorax: Bilateral breath sounds clear to auscultation [] Abdomen: Bowel sounds normal, soft, no tenderness, no masses, no pulsatile masses. [] Skin: Warm, dry, no erythema, no rash. [] Back: No tenderness, no CVA tenderness. [] Extremities: No tenderness, no cyanosis, no clubbing, ROM intact, no edema. [] Neurologic: Alert and oriented X 3, normal motor function, normal sensory function, no focal deficits noted. [] Psychologic: Affect normal, judgement normal, mood normal. Normal physical exam [] Current Patient Data: Labs: Laboratory Tests Test 07/08/20 14:37 07/08/20 14:51 Urine Collection Type Unknown Urine Color Yellow Urine Clarity Clear Urine pH 6.0 (<5.0-8.0) Urine Specific [place] 1.025 (1.000-1.030) Urine Protein Negative mg/dL (NEG-TRACE) Urine Glucose (UA) Negative mg/dL (NEG) Urine Ketones (Stick) Negative mg/dL (NEG) Urine Blood Trace (NEG) Urine Nitrite Negative (NEG) Urine Bilirubin Negative (NEG) Urine Urobilinogen Dipstick 1.0 mg/dL (0.2 mg/dL) Urine Leukocyte Esterase Negative (NEG) Urine RBC 1-2 /HPF (0-2) Urine WBC Occ /HPF (0-4) Urine Squamous Epithelial Cells Mod /LPF Urine Bacteria Few /HPF (0-FEW) Urine Mucus Mod /LPF POC Urine HCG, Qualitative Hcg negative (Negative) Vital Signs: Vital Signs Date Time Temp Pulse Resp B/P (MAP) Pulse Ox O2 Delivery O2 Flow Rate FiO2 07/08/20 14:35 98.6 80 14 130/72 (91) 99 Room Air 98.6 EKG: EKG: [] Radiology/Procedures: Radiology/Procedures: [] Course & Med Decision Making: Course & Med Decision Making Pertinent Labs and Imaging studies reviewed. (See chart for details) Speaks in full clear sentences. Ambulatory with steady gait. Abdomen is soft and nontender. No CVA tenderness. Afebrile. Skin pink warm and dry. Urinalysis looks to be contaminated. I will go ahead and treat the patient for her symptoms. Patient follow-up with her primary care physician. [] Cat Disclaimer: Cat Disclaimer: This electronic medical record was generated, in whole or in part, using a voice recognition dictation system. Departure Departure Impression: Primary Impression: Dysuria Disposition: HOME, SELF-CARE Condition: STABLE Referrals: UNKNOWN PCP NAME (PCP) Patient Instructions: Dysuria Additional Instructions: Follow-up with primary care provider. Take medication as prescribed and with food. Scripts Cephalexin (KEFLEX) 500 Mg Capsule 1 CAP PO BID for 7 Days, #14 CAP 0 Refills Prov: SJ SALDANA APRN 07/08/20 Justicifation of Admission Dx: Justifications for Admission: Justification of Admission Dx: N/A SJ SALDANA APRN Jul 08, 2020 15:01
== END 2020-07-08 15:22 | disposition home or self-care (01) ==
LOC: ER 14:25
DX: R30.0 Dysuria (principal); J45.909 Unspecified asthma, uncomplicated; F41.9 Anxiety disorder, unspecified; Z90.49 Acquired absence of other specified parts of digestive tract
CPT/HCPCS: 81001; 81025; 87491; 87591; 99283

== ENCOUNTER 2020-08-02 16:34 | Emergency (ER) | payer BC ==
[~2020-08-02] VITALS: Ht 167.6 cm; Wt 118.0 kg
[~2020-08-02 16:34] MED LIST changes: +CEPH-264 PO
[2020-08-02 16:45] VITALS: BP 150/69
[2020-08-02 17:03] LABS: BILIRUBIN,URINE NEGATIVE (NEG); CLARITY,URINE CLEAR; COLOR,URINE YELLOW; NITRITE,URINE NEGATIVE (NEG); PROTEIN,URINE NEGATIVE (NEG-TRACE)
--- NOTE | 2020-08-02 17:04 | PHYS DOC ---
Past Medical History Past Medical History: No Pertinent History, Anxiety, Asthma Additional Past Medical Histor: "prediabetic" Past Surgical History: Cholecystectomy Additional Past Surgical Histo: WISDOM TEETH EXTRACT Smoking Status: Never Smoker Alcohol Use: None Drug Use: None General Adult EDM: Chief Complaint: PAIN ON URINATION HPI: HPI: Patient is a 24 year old female with history of anxiety, asthma, who presents the ED today complaining of dysuria for 1 year. Patient states she was seen in the ED 2 weeks ago for the same complaint and was told she has a UTI, she was sent home on cephalexin which she finished. Patient states she has continued to have the symptoms. She states she already had STD check done a couple weeks ago and was negative. Denies any fever, abdominal pain, nausea vomiting. Review of Systems: Review of Systems: Constitutional: Denies fever or chills. [] Eyes: Denies change in visual acuity. [] HENT: Denies nasal congestion or sore throat. [] Respiratory: Denies cough or shortness of breath. [] Cardiovascular: Denies chest pain or edema. [] GI: Denies abdominal pain, nausea, vomiting, bloody stools or diarrhea. [] : Reports dysuria Musculoskeletal: Denies back pain or joint pain. [] Integument: Denies rash. [] Neurologic: Denies headache, focal weakness or sensory changes. [] Psychiatric: Denies depression or anxiety. [] Heart Score: Risk Factors: Risk Factors: DM, Current or recent (<one month) smoker, HTN, HLP, family history of CAD, obesity. Risk Scores: Score 0 - 3: 2.5% MACE over next 6 weeks - Discharge Home Score 4 - 6: 20.3% MACE over next 6 weeks - Admit for Clinical Observation Score 7 - 10: 72.7% MACE over next 6 weeks - Early Invasive Strategies Allergies: Allergies: Allergies Coded Allergies Type Severity Reaction Last Updated Verified No Known Drug Allergies 08/21/15 No Physical Exam: PE: Constitutional: Well developed, well nourished, no acute distress, non-toxic appearance. [] HENT: Normocephalic, atraumatic, bilateral external ears normal, oropharynx moist, no oral exudates, nose normal. [] Eyes: PERRLA, EOMI, conjunctiva normal, no discharge. [] Neck: Normal range of motion, no tenderness, supple, no stridor. [] Cardiovascular:Heart rate regular rhythm, no murmur [] Lungs & Thorax: Bilateral breath sounds clear to auscultation [] Abdomen: Bowel sounds normal, soft, no tenderness, no masses, no pulsatile masses. [] Skin: Warm, dry, no erythema, no rash. [] Back: No tenderness, no CVA tenderness. [] Extremities: No tenderness, no cyanosis, no clubbing, ROM intact, no edema. [] Neurologic: Alert and oriented X 3, normal motor function, normal sensory function, no focal deficits noted. [] Psychologic: Affect normal, judgement normal, mood normal. [] Current Patient Data: Labs: Laboratory Tests Test 08/02/20 17:02 POC Urine HCG, Qualitative Hcg negative (Negative) EKG: EKG: [] Radiology/Procedures: Radiology/Procedures: [] Course & Med Decision Making: Course & Med Decision Making Pertinent Labs and Imaging studies reviewed. (See chart for details) This is a 24-year-old female patient presenting to the ED today complaining of dysuria for 1 year. Patient was treated for UTI 2 weeks ago with cephalexin. Urine analysis is negative for UTI. Results were communicated to patient. I recommended seeing a urologist. Patient states she has already been seen urologist at , she states they did an extensive work-up including labs and CAT scans which were negative for any acute findings, she states she also followed up with an [facility] DIRECTOR who did an extensive work-up which was negative. Informed patient we will culture her urine and call her if it is positive. In the meantime I recommended she continues following up with a urologist as well as [facility] DIRECTOR. Also recommended [id number] pain relievers, prescription for Pyridium also provided. Gavinoon Disclaimer: Cat Disclaimer: This electronic medical record was generated, in whole or in part, using a voice recognition dictation system. Departure Departure Impression: Primary Impression: Dysuria Disposition: HOME, SELF-CARE Condition: STABLE Referrals: UNKNOWN PCP NAME (PCP) Follow-up with your urologist as well as PORTFOLIO DIRECTOR doctor in the next 1 to 2 weeks Patient Instructions: Dysuria-Brief Additional Instructions: You were evaluated in the emergency room, your urine was negative for urinary tract infection. Push fluids, take the prescribed medication as needed for pain when voiding. You can take Tylenol/Motrin as needed for pain. Please follow- up with the urologist as well as [facility] DIRECTOR in the next 1 to 2 weeks Scripts Phenazopyridine Hcl (PYRIDIUM) 100 Mg Tablet 1 TAB PO TID for urinary discomfort for 2 Days, #6 TAB 0 Refills Prov: ANISA MAHONEY APRN 08/02/20 Justicifation of Admission Dx: Justifications for Admission: Justification of Admission Dx: N/A ANISA MAHONEY APRN Aug 02, 2020 17:04
[2020-08-02 17:12] LABS: SQUAMOUS EPITHELIAL CELL,UR MOD /LPF
[2020-08-02 17:13] LABS: BACTERIA,URINE FEW /HPF (0-FEW)
[2020-08-02] MEDS ORDERED: PHEN100T82 PO (17:32)
== END 2020-08-02 18:00 | disposition home or self-care (01) ==
LOC: ER 16:34
DX: R30.0 Dysuria (principal); J45.909 Unspecified asthma, uncomplicated; Z90.49 Acquired absence of other specified parts of digestive tract; Z87.440 Personal history of urinary (tract) infections
CPT/HCPCS: 81001; 81025; 87491; 87591; 99283

== ENCOUNTER 2020-12-06 21:00 | Emergency (ER) | payer BC ==
[~2020-12-06] VITALS: Ht 167.6 cm; Wt 109.0 kg
[~2020-12-06 21:00] MED LIST changes: +PHEN100T82 PO
[2020-12-06 21:03] VITALS: BP 151/60
--- NOTE | 2020-12-06 21:40 | PHYS DOC ---
Past Medical History Past Medical History: Anxiety, Asthma Additional Past Medical Histor: "prediabetic" Past Surgical History: Cholecystectomy Additional Past Surgical Histo: WISDOM TEETH EXTRACT Smoking Status: Never Smoker Alcohol Use: None Drug Use: None General Adult EDM: Chief Complaint: EARACHE/EAR PAIN HPI: HPI: Patient is a 25 year old female with PMHx of pre-diabetes, that presents to the ED with complaint of bilateral ear pain for the last 4 weeks. Pain started intermittent in nature and progressed to constant pain 5 days ago. Pain is achy and stabbing in nature. She also reports some sinus pressure and headache with pain behind her left eye. She does have a sore throat and some nasal congestion. She also reports some ringing and "whooshing" sensation in her ears bilaterally. She reports needing to take Tylenol for the last week due to pain, which helps some she states. Her last dose of Tylenol was around 1830 today. She reports history of recurrent ear infections. No fever, SOB, or chest pain. Patients moth er has similar symptoms. No other complaints or symptoms at this time. Review of Systems: Review of Systems: Constitutional: Denies fever or chills Eyes: Denies redness or eye pain HENT: Positive for nasal congestion or sore throat. Bilateral ear pain with ear ringing. Denies any ear discharge. Respiratory: Denies cough or shortness of breath Cardiovascular: Denies chest pain or palpitations GI: Denies abdominal pain, nausea, or vomiting : Denies dysuria or hematuria Musculoskeletal: Denies back pain or joint pain Integument: Denies rash or skin lesions Neurologic: Denies headache, focal weakness or sensory changes Complete systems were reviewed and found to be within normal limits, except as documented in this note. Allergies: Allergies: Allergies Coded Allergies Type Severity Reaction Last Updated Verified No Known Drug Allergies 08/21/15 No Physical Exam: PE: Constitutional: Well developed, well nourished, no acute distress, non-toxic appearance HENT: Normocephalic, atraumatic. Bilateral TM no bulging or effusion. Mild erythema noted to TM. No pain with movement of external ear. Eyes: PERRL, EOMI, conjunctiva normal, no discharge Neck: Normal range of motion, no tenderness, supple Lungs & Thorax: No respiratory distress, equal chest rise and fall Abdomen: Soft, no tenderness Skin: Warm, dry, no erythema, no rash Back: No tenderness, no CVA tenderness Extremities: No tenderness, ROM intact, no edema Neurologic: Alert and oriented X 3, normal motor function, normal sensory function, no focal deficits noted Psychologic: Affect normal, judgment normal Current Patient Data: Vital Signs: Vital Signs Date Time Temp Pulse Resp B/P (MAP) Pulse Ox O2 Delivery O2 Flow Rate FiO2 12/06/20 21:03 98.2 84 18 151/60 (90) 99 Room Air 98.2 Course & Med Decision Making: Course & Med Decision Making (See chart for details) Patient presents complaining of bilateral ear pain, with a history of recurrent ear infections. Physical exam showed minimal erythema. Plan for course of steroids to reduce inflammation, with a prescription for antibiotics to be taken after 48 hours if symptoms persist or a fever develops. Patient stable for discharge with outpatient follow-up with PCP, and will refer patient to an ENT physician. Discussed findings and plan with patient, who acknowledges understanding and agreement. Cat Disclaimer: Cat Disclaimer: This electronic medical record was generated, in whole or in part, using a voice recognition dictation system. Departure Departure Disposition: [place] HOME SELF CARE/HOMELESS Condition: STABLE Referrals: UNKNOWN PCP NAME (PCP) TROY DICKEY MD Patient Instructions: Otalgia Additional Instructions: Hold antibiotics for 48 hours. If symptoms worsen or for fever > 100.3 F after 48 hours then start antibiotics as prescribed. Scripts Prednisone (PREDNISONE) 20 Mg Tablet 2 TAB PO DAILY, #8 TAB Start this prescription tomorrow, Tuesday12/07/20 Prov: FEDERICO NUR DO 12/06/20 Amoxicillin/Potassium Clav (AUGMENTIN 875-125 TABLET) 1 Each Tablet 1 TAB PO BID for 7 Days, #14 TAB Prov: FEDERICO NUR DO 12/06/20 FEDERICO NUR DO Dec 06, 2020 21:40
[2020-12-06] MEDS ORDERED: AMOX1TAB61 PO (22:02)
[2020-12-06] MEDS ORDERED: PRED20TA PO (22:02)
[2020-12-06] MEDS ORDERED: DEXAMETHASONE 4 MG TABLET PO ONE (22:30)
== END 2020-12-06 22:10 | disposition home or self-care (01) ==
LOC: ER 21:00
DX: J02.9 Acute pharyngitis, unspecified (principal); R09.81 Nasal congestion; H92.03 Otalgia, bilateral; R51.9 Headache, unspecified; F41.9 Anxiety disorder, unspecified; J45.909 Unspecified asthma, uncomplicated; Z90.49 Acquired absence of other specified parts of digestive tract; Z98.890 Other specified postprocedural states
CPT/HCPCS: 99283

== ENCOUNTER 2021-01-13 13:56 | Emergency (ER) | payer BC ==
[~2021-01-13] VITALS: Ht 165.1 cm; Wt 120.0 kg
[~2021-01-13 13:56] MED LIST changes: +PRED20TA PO
[2021-01-13] MEDS ORDERED: POLY10DR EACHEYE (14:50)
--- NOTE | 2021-01-13 14:50 | ED.ADGEN ---
Past Medical History Past Medical History: Anxiety, Asthma Additional Past Medical Histor: "prediabetic" Past Surgical History: Cholecystectomy Additional Past Surgical Histo: WISDOM TEETH EXTRACT Smoking Status: Never Smoker Alcohol Use: None Drug Use: None General Adult EDM: Chief Complaint: EYE PROBLEMS HPI: HPI: Patient is a 25 year old female who presents emergency department with comp laints of left eye redness, and itching for the last 3 days. Patient reports 2 days ago she woke up and her eye was crusted shut. She denies any tearing, decreased vision, or injury to her eye. Patient denies any complaints in the right eye. She reports that she took some allergy medication and that the redness and itching seemed to improve after that. She currently denies any pain. Review of Systems: Review of Systems: Complete ROS is negative unless otherwise noted in HPI. Allergies: Allergies: Allergies Coded Allergies Type Severity Reaction Last Updated Verified No Known Drug Allergies 08/21/15 No Physical Exam: PE: See Above Constitutional: Well developed, well nourished, no acute distress, non-toxic appearance, obese. [] HENT: Normocephalic, atraumatic, bilateral external ears normal, nose normal. [] Eyes: PERRLA, EOMI, conjunctiva normal, no discharge. [] Neck: Normal range of motion, no stridor. [] Cardiovascular:Heart rate regular rhythm Lungs & Thorax: Respirations even and unlabored, no retractions, no respiratory distress Skin: Warm, dry, no erythema, no rash. [] Extremities: No cyanosis, ROM intact, no edema. [] Neurologic: Alert and oriented X 3, no focal deficits noted. [] Psychologic: Affect normal, judgement normal, mood normal. [] Current Patient Data: Vital Signs: Vital Signs Date Time Temp Pulse Resp B/P (MAP) Pulse Ox O2 Delivery O2 Flow Rate FiO2 01/13/21 14:53 98.3 112 136/75 (95) 97 98.3 01/13/21 14:14 18 Room Air EKG: EKG: [] Heart Score: Risk Factors: Risk Factors: DM, Current or recent (<one month) smoker, HTN, HLP, family history of CAD, obesity. Risk Scores: Score 0 - 3: 2.5% MACE over next 6 weeks - Discharge Home Score 4 - 6: 20.3% MACE over next 6 weeks - Admit for Clinical Observation Score 7 - 10: 72.7% MACE over next 6 weeks - Early Invasive Strategies Radiology/Procedures: Radiology/Procedures: [] Course & Med Decision Making: Course & Med Decision Making Pertinent Labs and Imaging studies reviewed. (See chart for details) [] Gavinoon Disclaimer: Cat Disclaimer: This electronic medical record was generated, in whole or in part, using a voice recognition dictation system. Departure Departure Impression: Primary Impression: Conjunctivitis, left eye Disposition: 01 DC HOME SELF CARE/HOMELESS Condition: STABLE Referrals: CRISTOFER SANCHEZ MD (PCP) Patient Instructions: Allergic Conjunctivitis, [id number], Bacterial Conjunctivitis, [id number] Additional Instructions: Apply warm, moist washcloths to eyes needed for comfort. Recommend use of baby shampoo to wash eyelids. Discard mascara as discussed, recommend a daily aller gy tablet such as Zyrtec, Jocelyne, or Claritin. You may also try allergy eyedrops. If symptoms persist or your right eye also develops symptoms fill the prescription and use it as directed. Follow-up with your primary care doctor in 1-2 days. Return to the emergency room if your symptoms worsen. Scripts Polymyxin B Sulf/Trimethoprim (POLYTRIM EYE DROPS) 10 Ml Drops 2 DROP EACHEYE Q6HRS for 7 Days, #10 ML 0 Refills Prov: AMINA SAMPSON APRN 01/13/21 Problem Qualifiers Primary Impression: Conjunctivitis, left eye Conjunctivitis type: unspecified Qualified Codes: H10.9 - Unspecified conjunctivitis AMINA SAMPSON TOBACCO WETTER Jan 13, 2021 14:50
[2021-01-13 14:53] VITALS: BP 136/75
== END 2021-01-13 14:59 | disposition home or self-care (01) ==
LOC: ER 13:56
DX: H10.9 Unspecified conjunctivitis (principal); L29.9 Pruritus, unspecified; F41.9 Anxiety disorder, unspecified; J45.909 Unspecified asthma, uncomplicated; Z90.49 Acquired absence of other specified parts of digestive tract; Z98.890 Other specified postprocedural states
CPT/HCPCS: 99283

== ENCOUNTER 2021-01-26 15:55 | Emergency (ER) | payer BC ==
[~2021-01-26 15:55] MED LIST changes: +POLY10DR EACHEYE
== END 2021-01-26 16:57 | disposition left against medical advice (07) ==
LOC: ER 15:55
DX: Z77.098 Contact with and (suspected) exposure to other hazardous, chiefly nonmedicinal, chemicals (principal); Z53.21 Procedure and treatment not carried out due to patient leaving prior to being seen by health care provider

== ENCOUNTER 2021-02-28 08:26 | Emergency (ER) | payer BC ==
[~2021-02-28] VITALS: Ht 175.3 cm; Wt 132.0 kg
[2021-02-28 08:30] VITALS: BP 144/65
[2021-02-28] MEDS ORDERED: KETO5DRO89 EACHEYE (08:50)
[2021-02-28] MEDS ORDERED: POLY10DR LEFTEYE (08:50)
--- NOTE | 2021-02-28 08:51 | ED.ADGEN ---
Past Medical History Past Medical History: Anxiety, Asthma Additional Past Medical Histor: "prediabetic" Past Surgical History: Cholecystectomy Additional Past Surgical Histo: WISDOM TEETH EXTRACT Smoking Status: Never Smoker Alcohol Use: None Drug Use: None General Adult EDM: Chief Complaint: EYE PROBLEMS HPI: HPI: Patient is a 25 year old female coming in for left eye irritation. Patient states that she has had redness and itching of her left eye starting a few days ago. Patient has been using antiredness times without improvement. Patient states she takes Claritin for seasonal allergies. Was moving furniture earlier this week and says there is a lot of dust involved. Her eyes. This morning she woke up in her left eye was matted shut. Has had purulent discharge today. Denies any fevers or blurred vision. Denies any eye injury or possible foreign body. Patient states she has not worn contacts in a few weeks. Review of Systems: Review of Systems: All other systems within normal limits except for as noted in the HPI Allergies: Allergies: Allergies Coded Allergies Type Severity Reaction Last Updated Verified No Known Drug Allergies 02/28/21 No Physical Exam: PE: Constitutional: Well developed, well nourished, no acute distress, non-toxic appearance. [] HENT: Normocephalic, atraumatic, bilateral external ears normal, nose normal. [] Eyes: PERRLA, injection of conjunctiva, dried matted discharge on lashes. Extraocular movements intact, vision 20/20 in each eye. [] Neck: No rigidity, supple, no stridor. [] Cardiovascular: Regular rate and rhythm, brisk cap refill [] Lungs & Thorax: Non labored symmetric respirations, no tachypnea or respiratory distress [] Abdomen: Soft, nondistended. Skin: Warm, dry, no erythema, no rash. [] Back: Unremarkable Extremities: No deformities, range of motion grossly intact, no lower extremity edema [] Neurologic: Alert and oriented X 3, no focal deficits noted. [] Psychologic: Affect normal, judgement normal, mood normal. [] Current Patient Data: Vital Signs: Vital Signs Date Time Temp Pulse Resp B/P (MAP) Pulse Ox O2 Delivery O2 Flow Rate FiO2 02/28/21 08:30 98.0 100 18 144/65 (91) 99 Room Air 98.0 EKG: EKG: [] Heart Score: C/O Chest Pain: No Risk Factors: Risk Factors: DM, Current or recent (<one month) smoker, HTN, HLP, family history of CAD, obesity. Risk Scores: Score 0 - 3: 2.5% MACE over next 6 weeks - Discharge Home Score 4 - 6: 20.3% MACE over next 6 weeks - Admit for Clinical Observation Score 7 - 10: 72.7% MACE over next 6 weeks - Early Invasive Strategies Radiology/Procedures: Radiology/Procedures: [] Course & Med Decision Making: Course & Med Decision Making Pertinent Labs and Imaging studies reviewed. (See chart for details) [] Dragon Disclaimer: Dragon Disclaimer: This electronic medical record was generated, in whole or in part, using a voice recognition dictation system. Departure Departure Impression: Primary Impression: Conjunctivitis, left eye Disposition: 01 DC HOME SELF CARE/HOMELESS Condition: STABLE Referrals: CRISTOFER SANCHEZ MD (PCP) Patient Instructions: Bacterial Conjunctivitis Scripts Polymyxin B Sulf/Trimethoprim (POLYTRIM EYE DROPS) 10 Ml Drops 1 DROP LEFTEYE Q6HRS for antibiotic for 7 Days, #10 ML Prov: MJ BANEGAS MD 02/28/21 Ketotifen Fumarate (KETOTIFEN FUMARATE) 5 Ml Drops 1 DROP EACHEYE BID PRN for ALLERGIES for 30 Days, #5 ML 0 Refills Prov: MJ BANEGAS MD 02/28/21 MJ BANEGAS MD Feb 28, 2021 08:51
== END 2021-02-28 08:52 | disposition home or self-care (01) ==
LOC: ER 08:26
DX: H10.89 Other conjunctivitis (principal); L29.9 Pruritus, unspecified; F41.9 Anxiety disorder, unspecified; J45.909 Unspecified asthma, uncomplicated; Z90.49 Acquired absence of other specified parts of digestive tract; Z98.890 Other specified postprocedural states
CPT/HCPCS: 99283

== ENCOUNTER 2021-04-23 21:53 | Emergency (ER) | payer BC ==
[~2021-04-23] VITALS: Ht 165.1 cm; Wt 127.0 kg
[~2021-04-23 21:53] MED LIST changes: +KETO5DRO89 EACHEYE; +POLY10DR LEFTEYE
[2021-04-23 22:10] LABS: BILIRUBIN,URINE NEGATIVE (NEG); CLARITY,URINE CLEAR; COLOR,URINE YELLOW; NITRITE,URINE NEGATIVE (NEG); PROTEIN,URINE NEGATIVE (NEG-TRACE); UROBILINOGEN,URINE 0.2 mg/dL (0.2 mg/dL)
[2021-04-23 22:17] LABS: BACTERIA,URINE 0 /HPF (0-FEW); WBC,URINE RARE /HPF (0-4)
[2021-04-23 23:40] VITALS: BP 142/71
[2021-04-24] MEDS ORDERED: cefTRIAXone IM 500 MG VIAL. IM ONE (01:00)
[2021-04-24] MEDS ORDERED: AZITHROMYCIN 250 MG TABLET. PO ONE (01:00)
--- NOTE | 2021-04-24 01:28 | PHYS DOC ---
Past Medical History Past Medical History: Anxiety, Asthma, Diabetes-Type II Additional Past Medical Histor: "prediabetic" Past Surgical History: Cholecystectomy Additional Past Surgical Histo: WISDOM TEETH EXTRACT Smoking Status: Never Smoker Alcohol Use: None Drug Use: None General Adult EDM: Chief Complaint: PAIN ON URINATION HPI: HPI: Patient is a 25 year old [f__sex] who presents with [] Review of Systems: Review of Systems: Constitutional: Denies fever or chills. [] Eyes: Denies change in visual acuity. [] HENT: Denies nasal congestion or sore throat. [] Respiratory: Denies cough or shortness of breath. [] Cardiovascular: Denies chest pain or edema. [] GI: Denies abdominal pain, nausea, vomiting, bloody stools or diarrhea. [] : Denies dysuria. [] Musculoskeletal: Denies back pain or joint pain. [] Integument: Denies rash. [] Neurologic: Denies headache, focal weakness or sensory changes. [] Endocrine: Denies polyuria or polydipsia. [] Lymphatic: Denies swollen glands. [] Psychiatric: Denies depression or anxiety. [] Heart Score: Risk Factors: Risk Factors: DM, Current or recent (<one month) smoker, HTN, HLP, family history of CAD, obesity. Risk Scores: Score 0 - 3: 2.5% MACE over next 6 weeks - Discharge Home Score 4 - 6: 20.3% MACE over next 6 weeks - Admit for Clinical Observation Score 7 - 10: 72.7% MACE over next 6 weeks - Early Invasive Strategies Current Medications: Current Medications Medications (Trade) Dose Ordered Sig/Ryan Start Time Stop Time Status Last Admin Dose Admin Azithromycin (Zithromax) 1,000 mg 1X ONCE 04/24/21 01:00 04/24/21 01:01 DC 04/24/21 00:37 1,000 MG Ceftriaxone Sodium (Rocephin Im) 500 mg 1X ONCE 04/24/21 01:00 04/24/21 01:01 DC 04/24/21 00:37 500 MG Allergies: Allergies: Allergies Coded Allergies Type Severity Reaction Last Updated Verified No Known Drug Allergies 02/28/21 No Physical Exam: PE: Constitutional: Well developed, well nourished, no acute distress, non-toxic appearance. [] HENT: Normocephalic, atraumatic, bilateral external ears normal, oropharynx moist, no oral exudates, nose normal. [] Eyes: PERRLA, EOMI, conjunctiva normal, no discharge. [] Neck: Normal range of motion, no tenderness, supple, no stridor. [] Cardiovascular:Heart rate regular rhythm, no murmur [] Lungs & Thorax: Bilateral breath sounds clear to auscultation [] Abdomen: Bowel sounds normal, soft, no tenderness, no masses, no pulsatile masses. [] Skin: Warm, dry, no erythema, no rash. [] Back: No tenderness, no CVA tenderness. [] Extremities: No tenderness, no cyanosis, no clubbing, ROM intact, no edema. [] Neurologic: Alert and oriented X 3, normal motor function, normal sensory function, no focal deficits noted. [] Psychologic: Affect normal, judgement normal, mood normal. [] Current Patient Data: Labs: Laboratory Tests Test 04/23/21 22:04 04/23/21 22:05 Urine Collection Type Unknown Urine Color Yellow Urine Clarity Clear Urine pH 6.0 (<5.0-8.0) Urine Specific [place] >=1.030 (1.000-1.030) Urine Protein Negative mg/dL (NEG-TRACE) Urine Glucose (UA) Negative mg/dL (NEG) Urine Ketones (Stick) Negative mg/dL (NEG) Urine Blood Moderate (NEG) Urine Nitrite Negative (NEG) Urine Bilirubin Negative (NEG) Urine Urobilinogen Dipstick 0.2 mg/dL (0.2 mg/dL) Urine Leukocyte Esterase Negative (NEG) Urine RBC 1-2 /HPF (0-2) Urine WBC Rare /HPF (0-4) Urine Squamous Epithelial Cells Few /LPF Urine Bacteria 0 /HPF (0-FEW) Urine Mucus Slight /LPF POC Urine HCG, Qualitative Hcg negative (Negative) Microbiology 04/24/21 Wet Prep - Final, Complete Vital Signs: Vital Signs Date Time Temp Pulse Resp B/P (MAP) Pulse Ox O2 Delivery O2 Flow Rate FiO2 04/23/21 23:40 97.7 80 16 142/71 (94) 97 Room Air 97.7 EKG: EKG: [] Radiology/Procedures: Radiology/Procedures: [] Course & Med Decision Making: Course & Med Decision Making Pertinent Labs and Imaging studies reviewed. (See chart for details) [] Dragon Disclaimer: Dragon Disclaimer: This electronic medical record was generated, in whole or in part, using a voice recognition dictation system. Departure Departure Impression: Primary Impression: Dysuria Additional Impression: Abnormal vaginal bleeding Disposition: HOME / SELF CARE / HOMELESS Condition: STABLE Referrals: CRISTOFER SANCHEZ MD (PCP) Patient Instructions: Abnormal Uterine Bleeding, Dysuria Additional Instructions: Please follow up with GRAV[facility] WEIGHER as previously scheduled for further evaluation. FEDERICO NUR DO Apr 24, 2021 01:28
[2021-04-25 23:07] LABS: GC PROBE Negative (Negative)
== END 2021-04-24 01:50 | disposition home or self-care (01) ==
LOC: ER 21:53
DX: R30.0 Dysuria (principal); N93.9 Abnormal uterine and vaginal bleeding, unspecified; J45.909 Unspecified asthma, uncomplicated; E11.9 Type 2 diabetes mellitus without complications
CPT/HCPCS: 81001; 81025; 87491; 87591; 96372; 99284; J0696; Q0111